=== PATIENT | female | born 1985 | race Caucasian/White ===

== ENCOUNTER 2018-09-03 01:28 | Emergency (ER) | payer MEDICAID ==
[2018-09-03] MEDS ORDERED: Keppra 500 MG/5 ML*** 1,000 MG in D5w 100ML Mini Bag 100 ML 100 ML IV ONE (01:40)
[2018-09-03] MEDS ORDERED: Sodium Chloride 0.9% 1000 ML 1,000 ML IV SCH (01:45)
--- NOTE | 2018-09-03 01:46 | ERPHSYRPT ---
- History of Present Illness Time Seen by Provider: 09/03/18 01:35 Source: patient Patient Subjective Stated Complaint: PT IS ALERT AND ORIENTED. PT IS AMBULATORY WITH A STEADY GAIT. PT COMES IN TONIGHT AFTER HAVING 4 SEIZURES WHILE AT WORK. PT IS UNAWARE OF HOW LONG SEIZURES LASTED. PT STATES THAT SHE BELIEVES SHE HIT HER HEAD BECAUSE HER HEAD IS HURTING. PT DENIES DOUBLE VISION BUT STATES SHE'S HAVING SENSITIVITY TO LIGHT AND SOUND. PT STATES SHE IS DIZZY. PT PERRLA. PT ABLE TO MOVE EXTREMETIES WITHOUT DIFFICULTY. PT STATES SHE IS VERY SLEEPY. PT SKIN PWD. NO OBVIOUS INJURIES OR BLEEDING NOTED TO HEAD OR REST OF BODY. Triage Nursing Assessment: SEE ABOVE Physician History: PATIENT WITH A HISTORY OF SEIZURE DISORDER, OUT OF HER SEIZURE MEDICATION FOR 5- 6 MONTHS. HAD SEIZURES EPISODES TONIGNT, HAS ASSOCIATED HEADACHE. DENIES FEVER OR NECK INJURY. Timing/Duration: today Severity: mild Character of Deficits: none Baseline/Normal Cognition: alert oriented x 3 Current Cognition: alert oriented x 3 Baseline Gait: walks w/o assistance Associated Symptoms: seizures Allergies/Adverse Reactions: latex Allergy (Verified 09/03/18 01:43) Home Medications: Aripiprazole [Abilify] 5 mg PO HS 09/03/18 [History] Fluoxetine HCl 20 mg [Prozac 20 MG] 20 mg PO DAILY 09/03/18 [History] Hx Tetanus, Diphtheria Vaccination/Date Given: Yes Immunizations Up to Date: Yes - Review of Systems Constitutional: No Fever, No Chills Eyes: No Symptoms Ears, Nose, & Throat: No Symptoms Respiratory: No Symptoms, No Cough, No Dyspnea Cardiac: No Symptoms, No Chest Pain, No Edema, No Syncope Abdominal/Gastrointestinal: No Symptoms, No Abdominal Pain, No Nausea, No Vomiting, No Diarrhea Genitourinary Symptoms: No Dysuria Musculoskeletal: No Symptoms, No Back Pain, No Neck Pain Skin: No Symptoms, No Rash Neurological: No Dizziness, No Focal Weakness, No Sensory Changes Psychological: No Symptoms Endocrine: No Symptoms All Other Systems: Reviewed and Negative - Past Medical History Pertinent Past Medical History: Yes Neurological History: Seizures ENT History: No Pertinent History Cardiac History: No Pertinent History Respiratory History: Asthma Endocrine Medical History: No Pertinent History Musculoskeletal History: No Pertinent History GI Medical History: GERD History: No Pertinent History Psycho-Social History: No Pertinent History Female Reproductive Disorders: No Pertinent History - Past Surgical History Past Surgical History: Yes Neuro Surgical History: No Pertinent History Cardiac: No Pertinent History Respiratory: No Pertinent History Gastrointestinal: No Pertinent History Genitourinary: No Pertinent History Musculoskeletal: No Pertinent History Female Surgical History: Dilation & Curettage, Section - Social History Smoking Status: Current every day smoker How long have you smoked: 2 YEARS Drug Use: none - Female History Hx Now: No - Nursing Vital Signs Nursing Vital Signs: Initial Vital Signs Temperature 99.0 F 09/03/18 01:35 Pulse Rate 57 L 09/03/18 01:35 Respiratory Rate 18 09/03/18 01:35 Blood Pressure 124/53 09/03/18 01:35 O2 Sat by Pulse Oximetry 100 09/03/18 01:35 Pain Scale Pain Intensity 8 - [place] Coma Scale Best Eye Response ([place]): (4) open spontaneously Best Verbal Response ([place]): (5) oriented Best Motor Response ([place]): (6) obeys commands [place] Total: 15 - Physical Exam General Appearance: no apparent distress, alert Eye Exam: bilateral eye: normal inspection, PERRL, EOMI Ears, Nose, Throat Exam: normal ENT inspection Neck Exam: normal inspection Respiratory: normal breath sounds Cardiovascular: regular rate/rhythm, normal heart sounds Gastrointestinal: soft, normal bowel sounds Back Exam: normal inspection Extremity Exam: normal inspection Peripheral Pulses: carotid (R): 2+, carotid (L): 2+, femoral (R): 2+, femoral (L ): 2+, dorsalis-pedis (R): 2+, dorsalis-pedis (L): 2+ Mental Status: alert, 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 Coordination/Gait: normal finger to nose DTR: bicep (R): 2+, bicep (L): 2+, tricep (R): 2+, tricep (L): 2+, knee (R): 2+ , knee (L): 2+, ankle (R): 2+, ankle (L): 2+ Skin Exam: normal color, warm, dry SpO2 Interpretation: normal SpO2: 100 O2 Delivery: Room Air - Course EKG Interpreted by Me: RATE, Sinus Rhythm, NORMAL AXIS Ordered Tests: Active Orders 24 hr Category Date Time Status [facility] Stat Lab 09/03/18 02:16 Completed CBC W DIFF Stat Lab 09/03/18 02:16 Completed MAGNESIUM Stat Lab 09/03/18 02:17 Completed Medication Summary Generic Name Dose Route Start Last Admin Trade Name [place] PRN Reason Stop Dose Admin Sodium Chloride 1,000 mls @ 100 mls/hr 09/03/18 01:45 09/03/18 01:57 Sodium Chloride 0.9% 1000 Ml IV 10/03/18 01:44 100 mls/hr .Q10H ROZ Administration Discontinued Medications Generic Name Dose Route Start Last Admin Trade Name [place] PRN Reason Stop Dose Admin Levetiracetam 1,000 mg/ 110 mls @ 400 mls/hr 09/03/18 01:40 09/03/18 01:56 Dextrose IV 09/03/18 01:56 133 mls/hr STAT ONE Administration Dextrose Confirm 09/03/18 01:48 D5w 100ml Mini Bag 100 Ml Administered 09/03/18 01:49 Dose 100 mls @ ud IV .STK-MED ONE Levetiracetam Confirm 09/03/18 01:48 Keppra 500 Mg/5 Ml Administered 09/03/18 01:49 Dose 1,000 mg .ROUTE .STK-MED ONE Lab/Rad Data: Laboratory Result Diagrams 09/03/18 02:16 09/03/18 02:16 Laboratory Results 09/03/18 09/03/18 09/03/18 Range/Units 02:17 02:16 02:16 WBC 8.5 (4.0-10.5) K/mm3 RBC 4.02 L (4.1-5.4) M/mm3 Hgb 12.0 (12.0-16.0) gm/dl Hct 36.1 (35-47) % MCV 89.8 (78-100) fl MCH 29.8 (26-32) pg MCHC 33.2 (32-36) g/dl RDW 15.0 H (11.5-14.0) % Plt Count 218 (150-450) K/mm3 MPV 11.1 H (6-9.5) fl Gran % 59.9 (36.0-66.0) % Eos # (Auto) 0.09 (0-0.5) Absolute Lymphs (auto) 2.74 (1.0-4.6) Absolute Monos (auto) 0.56 (0.0-1.3) Lymphocytes % 32.2 (24.0-44.0) % Monocytes % 6.6 (0.0-12.0) % Eosinophils % 1.1 (0.00-5.0) % Basophils % 0.2 (0.0-0.4) % Absolute Granulocytes 5.10 (1.4-6.9) Basophils # 0.02 (0-0.4) Sodium 140 (137-145) mmol/L Potassium 3.9 (3.5-5.1) mmol/L Chloride 107 (98-107) mmol/L Carbon Dioxide 23 (22-30) mmol/L Anion Gap 14.9 (5-15) MEQ/L BUN 15 (7-17) mg/dL Creatinine 0.90 (0.52-1.04) mg/dL Estimated GFR > 60.0 ML/MIN Glucose 91 (74-106) mg/dL Calcium 9.6 (8.4-10.2) mg/dL Magnesium 2.2 (1.6-2.3) mg/dL - Progress Progress Note: 09/03/18 04:09 KEPPRA 1000MG IVPB Counseled pt/family regarding: lab results, diagnosis, need for follow-up - Departure Departure Disposition: Home Clinical Impression: SEIZURE DISORDER Condition: Stable Critical Care Time: No Referrals: DOCTOR,NO FAMILY [Primary Care Provider] - Additional Instructions: BEGIN DILANTIN 100MG, 2 TABLETS TWICE DAILY FOR 1 MONTH. OBTAIN A PRIMARY CARE PROVIDER FOR FOLLOWUP. Prescriptions: Phenytoin Sod Extended 100 mg* [Dilantin 100 MG] 200 mg PO BID #120 capsule
[2018-09-03] MEDS ORDERED: Keppra 500 MG/5 ML ONE (01:48)
[2018-09-03] MEDS ORDERED: Sodium Chloride 0.9% 1000 ML 1,000 ML ONE (01:48)
[2018-09-03] MEDS ORDERED: D5w 100ML Mini Bag 100 ML 100 ML IV ONE (01:48)
[2018-09-03 02:20] LABS: BASOPHIL % 0.2 % (0.0-0.4); Basophil (Absolute #) 0.02 (0-0.4); Eosinophil % 1.1 % (0.00-5.0); Eosinophil (Absolute #) 0.09 (0-0.5); Granulocytes % 59.9 % (36.0-66.0); Hematocrit 36.1 % (35-47); Lymphocyte (Absolute #) 2.74 (1.0-4.6); Lymphocytes % 32.2 % (24.0-44.0); Mean Cell Volume 89.8 fl (78-100); Mean Corpuscular Hgb Concent. 33.2 g/dl (32-36); Mean Platelet Volume 11.1 fl (6-9.5); Monocyte (Absolute #) 0.56 (0.0-1.3); Monocytes % 6.6 % (0.0-12.0); Platelet Count 218 K/mm3 (150-450); Red Blood Count 4.02 M/mm3 (4.1-5.4); White Blood Count 8.5 K/mm3 (4.0-10.5)
[2018-09-03 02:30] VITALS: BP 108/62; PULSE 48
[2018-09-03 02:30] LABS: ANION GAP 14.9 MEQ/L (5-15); BLOOD UREA NITROGEN 15 mg/dL (7-17); CHLORIDE 107 mmol/L (98-107); Calcium 9.6 mg/dL (8.4-10.2); Carbon Dioxide 23 mmol/L (22-30); Glucose 91 mg/dL (74-106); Potassium 3.9 mmol/L (3.5-5.1); SODIUM 140 mmol/L (137-145)
[2018-09-03 02:46] LABS: Mean Corpuscular Hemoglobin 29.8 pg (26-32)
[2018-09-03 02:59] VITALS: O2SAT 100
== END 2018-09-03 04:27 | disposition home or self-care (01) ==
LOC: ED 01:28
DX: G40.909 Epilepsy, unspecified, not intractable, without status epilepticus (principal)
CPT/HCPCS: 36415; 80048; 83735; 85025; 96360; 96361; 96365; 96374; 99284; J1953

== ENCOUNTER 2018-09-04 18:23 | Observation (INO) | payer MEDICAID ==
--- NOTE | 2018-09-04 18:57 | ERPHSYRPT ---
- History of Present Illness Source: patient Exam Limitations: no limitations Patient Subjective Stated Complaint: "seizure" today.. was seen here on wednesday for the same. EMS states she had an epidoe where she was bouncing back in her chair. was able to redirect and was able to answer all questions. no tonic / clonic and no incontinence. states has hx of seizures. just moved here from [facility] Nursing Assessment: alert and oriented. arrived with IV to left hand per EMS episode of throwing back of head and eye fluttering.. flapping of right arm. able to tall her to take a deep breath and activity stopped. again able to answer all questions.. no incontinece of confusion. neuro intact. Timing/Duration: today Character of Deficits: none Deficits: no difficulties Baseline/Normal Cognition: alert oriented x 3 Current Cognition: alert oriented x 3 Associated Symptoms: denies symptoms Hx Tetanus, Diphtheria Vaccination/Date Given: Yes Immunizations Up to Date: (unknown) <JORGE GODINEZ - Last Filed: 09/04/18 19:06> <AUSTIN TRONCOSO - Last Filed: 09/05/18 02:03> - History of Present Illness Time Seen by Provider: 09/04/18 18:55 Physician History: "seizure" today.. was seen here on wednesday for the same. EMS states she had an epidoe where she was bouncing back in her chair. was able to redirect and was able to answer all questions. no tonic /clonic and no incontinence. states has hx of seizures. episode of throwing back of head and eye fluttering.. flapping of right arm. able to tall her to take a deep breath and activity stopped. again able to answer all questions.. no incontinece of confusion. (JORGE GODINEZ) Allergies/Adverse Reactions: latex Allergy (Verified 09/03/18 01:43) Home Medications: Aripiprazole [Abilify] 5 mg PO HS 09/03/18 [History] Fluoxetine HCl 20 mg [Prozac 20 MG] 20 mg PO DAILY 09/03/18 [History] - Review of Systems Constitutional: No Fever, No Chills Eyes: No Symptoms Ears, Nose, & Throat: No Symptoms Respiratory: No Cough, No Dyspnea Cardiac: No Chest Pain, No Edema, No Syncope Abdominal/Gastrointestinal: No Abdominal Pain, No Nausea, No Vomiting, No Diarrhea Genitourinary Symptoms: No Dysuria Musculoskeletal: No Back Pain, No Neck Pain Skin: No Rash Neurological: Seizure, No Dizziness, No Focal Weakness, No Sensory Changes Psychological: No Symptoms Endocrine: No Symptoms All Other Systems: Reviewed and Negative <GRETCHEN,JORGE - Last Filed: 09/04/18 19:06> - Past Medical History Pertinent Past Medical History: Yes Neurological History: Seizures ENT History: No Pertinent History Cardiac History: No Pertinent History Respiratory History: Asthma Endocrine Medical History: No Pertinent History Musculoskeletal History: No Pertinent History GI Medical History: GERD History: No Pertinent History Psycho-Social History: No Pertinent History Female Reproductive Disorders: No Pertinent History - Past Surgical History Past Surgical History: Yes Neuro Surgical History: No Pertinent History Cardiac: No Pertinent History Respiratory: No Pertinent History Gastrointestinal: No Pertinent History Genitourinary: No Pertinent History Musculoskeletal: No Pertinent History Female Surgical History: Dilation & Curettage, Section - Social History Smoking Status: Former smoker How long have you smoked: 2 YEARS Exposure to second hand smoke: No Drug Use: none Patient Lives Alone: No - Female History Hx Last Menstrual Period: 1 month Hx Now: No <GRETCHEN,JORGE - Last Filed: 09/04/18 19:06> - [place] Coma Scale Best Eye Response ([place]): (4) open spontaneously Best Verbal Response ([place]): (5) oriented Best Motor Response ([place]): (6) obeys commands [place] Total: 15 - Physical Exam General Appearance: no apparent distress, alert Eye Exam: bilateral eye: PERRL, EOMI Ears, Nose, Throat Exam: normal ENT inspection, moist mucous membranes Neck Exam: normal inspection, non-tender, supple Respiratory: normal breath sounds, lungs clear, airway intact, No respiratory distress Cardiovascular: regular rate/rhythm, No edema Gastrointestinal: soft, No tenderness, No distention Back Exam: normal inspection Extremity Exam: normal inspection, No pedal edema Mental Status: alert, 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 Coordination/Gait: normal finger to nose, normal gait Skin Exam: normal color, warm, dry, No rash SpO2: 100 <GRETCHEN,JORGE - Last Filed: 09/04/18 19:06> - Nursing Vital Signs Nursing Vital Signs: Initial Vital Signs Temperature 98.1 F 09/04/18 18:34 Pulse Rate 60 09/04/18 18:34 Respiratory Rate 18 09/04/18 18:34 Blood Pressure 110/57 09/04/18 18:34 O2 Sat by Pulse Oximetry 100 09/04/18 18:34 Pain Scale Pain Intensity 0 - Course Nursing assessment & vital signs reviewed: Yes <GRETCHENCAROLJORGE - Last Filed: 09/04/18 19:06> - Course Nursing assessment & vital signs reviewed: Yes EKG Interpreted by Me: RATE (52 bpm), Sinus [place], NORMAL AXIS, Other (EKG: Sinus bradycardia, tachycardia 2 beats per minute, no acute ST or T wave changes noted) <AUSTIN TRONCOSO - Last Filed: 09/05/18 02:03> Ordered Tests: Active Orders 24 hr Category Date Time Status Bedrest with BRP/BSC ROUTINE Activity 09/04/18 21:55 Active Call Admit Doctor for Orders ON ADMISSION Care 09/04/18 21:55 Active Code Status Order ROUTINE Care 09/04/18 21:55 Active EKG-ER Only STAT Care 09/04/18 20:41 Completed IV Care Q6H Care 09/04/18 21:55 Active Neuro Checks Q4H Care 09/04/18 21:[address] in Observation ROUTINE Care 09/04/18 21:55 Active Telemetry q6h Care 09/04/18 21:55 Active Weight,Daily 0600 Care 09/04/18 21:55 Active Clear Liquid Diet 09/04/18 Breakfast Active CBC W DIFF AM.LAB Lab 09/05/18 04:00 Ordered CBC W DIFF Stat Lab 09/04/18 19:15 Completed CMP AM.LAB Lab 09/05/18 04:00 Ordered CMP Stat Lab 09/04/18 19:15 Completed HCG QUALITATIVE,SERUM Stat Lab 09/04/18 19:15 Completed UA W/RFX UR CULTURE Stat Lab 09/04/18 19:39 Completed Pulse Oximetry CONTINUOUS RT 09/04/18 21:55 Active Medication Summary Generic Name Dose Route Start Last Admin Trade Name Freq PRN Reason Stop Dose Admin Albuterol Sulfate 2 puff 09/04/18 23:01 Proventil Common Canister IH 10/04/18 23:00 Q4HPRN PRN SHORTNESS OF BREATH/WHEEZING Aripiprazole 5 mg 09/05/18 22:00 Abilify 10 Mg PO 10/05/18 21:59 HS ROZ Sodium Chloride 1,000 mls @ 100 mls/hr 09/04/18 21:55 09/05/18 00:14 Sodium Chloride 0.9% 1000 Ml IV 10/04/18 21:54 100 mls/hr .Q10H ROZ Administration Phenytoin Sodium 200 mg 09/05/18 00:05 09/05/18 00:14 Dilantin 100 Mg PO 10/05/18 00:04 200 mg BID ROZ Administration Discontinued Medications Generic Name Dose Route Start Last Admin Trade Name Freq PRN Reason Stop Dose Admin Aripiprazole 5 mg 09/05/18 10:00 Abilify 10 Mg PO 10/05/18 09:59 DAILY ROZ Aripiprazole 5 mg 09/05/18 00:08 09/05/18 00:16 Abilify 10 Mg PO 10/05/18 00:07 5 mg DAILY ROZ Administration Aripiprazole Confirm 09/05/18 00:12 Abilify 10 Mg Administered 09/05/18 00:13 Dose 10 mg .ROUTE .STK-MED ONE Fosphenytoin Sodium Confirm 09/04/18 20:44 Cerebyx 50 Mg/Ml Administered 09/04/18 20:45 Dose 500 mg .ROUTE .STK-MED ONE Fosphenytoin Sodium 500 mg/ 110 mls @ 300 mls/hr 09/04/18 20:41 09/04/18 20: 52 Sodium Chloride IV 09/04/18 21:02 300 mls/hr STAT ONE Administration Sodium Chloride Confirm 09/04/18 20:44 Sodium Chloride 0.9% 100 Ml Ivpb Administered 09/04/18 20:45 Dose 100 mls @ ud IV .STK-MED ONE Lab/Rad Data: Laboratory Result Diagrams 09/04/18 19:15 09/04/18 19:15 Laboratory Results 09/04/18 09/04/18 09/04/18 Range/Units 19:39 19:15 19:15 WBC (4.0-10.5) K/mm3 RBC (4.1-5.4) M/mm3 Hgb (12.0-16.0) gm/dl Hct (35-47) % MCV (78-100) fl MCH (26-32) pg MCHC (32-36) g/dl RDW (11.5-14.0) % Plt Count (150-450) K/mm3 MPV (6-9.5) fl Gran % (36.0-66.0) % Eos # (Auto) (0-0.5) Absolute Lymphs (auto) (1.0-4.6) Absolute Monos (auto) (0.0-1.3) Lymphocytes % (24.0-44.0) % Monocytes % (0.0-12.0) % Eosinophils % (0.00-5.0) % Basophils % (0.0-0.4) % Absolute Granulocytes (1.4-6.9) Basophils # (0-0.4) Sodium (137-145) mmol/L Potassium (3.5-5.1) mmol/L Chloride (98-107) mmol/L Carbon Dioxide (22-30) mmol/L Anion Gap (5-15) MEQ/L BUN (7-17) mg/dL Creatinine (0.52-1.04) mg/dL Estimated GFR ML/MIN Glucose (74-106) mg/dL Calcium (8.4-10.2) mg/dL Total Bilirubin (0.2-1.3) mg/dL AST (14-36) U/L ALT (0-35) U/L Alkaline Phosphatase (38-126) U/L Serum Total Protein (6.3-8.2) g/dL Albumin (3.5-5.0) g/dL Serum , Qual NEGATIVE (Negative) Urine Color YELLOW (YELLOW) Urine Appearance SLIGHTLY CLOUDY (CLEAR) Urine pH 7.0 (5-6) Ur Specific [place] 1.008 (1.005-1.025) Urine Protein NEGATIVE (Negative) Urine Ketones NEGATIVE (NEGATIVE) Urine Blood NEGATIVE (0-5) Horacio/ul Urine Nitrite NEGATIVE (NEGATIVE) Urine Bilirubin NEGATIVE (NEGATIVE) Urine Urobilinogen NEGATIVE (0-1) mg/dL Ur Leukocyte Esterase NEGATIVE (NEGATIVE) Urine WBC (Auto) 0-2 (0-5) /HPF Urine RBC (Auto) NONE SEEN (0-2) /HPF U Epithel Cells (Auto) FEW (FEW) /HPF Urine Bacteria (Auto) RARE (NEGATIVE) /HPF Urine Mucus (Auto) SLIGHT (NEGATIVE) /HPF Urine Culture Reflexed NO (NO) Urine Glucose NEGATIVE (NEGATIVE) mg/dL Phenytoin 4.0 L (10-20) ug/mL 09/04/18 09/04/18 Range/Units 19:15 19:15 WBC 7.2 (4.0-10.5) K/mm3 RBC 3.92 L (4.1-5.4) M/mm3 Hgb 11.8 L (12.0-16.0) gm/dl Hct 35.4 (35-47) % MCV 90.3 (78-100) fl MCH 30.1 (26-32) pg MCHC 33.3 (32-36) g/dl RDW 15.1 H (11.5-14.0) % Plt Count 197 (150-450) K/mm3 MPV 11.0 H (6-9.5) fl Gran % 57.5 (36.0-66.0) % Eos # (Auto) 0.10 (0-0.5) Absolute Lymphs (auto) 2.30 (1.0-4.6) Absolute Monos (auto) 0.64 (0.0-1.3) Lymphocytes % 31.9 (24.0-44.0) % Monocytes % 8.9 (0.0-12.0) % Eosinophils % 1.4 (0.00-5.0) % Basophils % 0.3 (0.0-0.4) % Absolute Granulocytes 4.14 (1.4-6.9) Basophils # 0.02 (0-0.4) Sodium 140 (137-145) mmol/L Potassium 4.5 (3.5-5.1) mmol/L Chloride 110 H (98-107) mmol/L Carbon Dioxide 23 (22-30) mmol/L Anion Gap 11.6 (5-15) MEQ/L BUN 12 (7-17) mg/dL Creatinine 1.39 H (0.52-1.04) mg/dL Estimated GFR 46.7 ML/MIN Glucose 79 (74-106) mg/dL Calcium 8.8 (8.4-10.2) mg/dL Total Bilirubin 0.10 L (0.2-1.3) mg/dL AST 16 (14-36) U/L ALT 14 (0-35) U/L Alkaline Phosphatase 47 (38-126) U/L Serum Total Protein 6.8 (6.3-8.2) g/dL Albumin 3.7 (3.5-5.0) g/dL Serum , Qual (Negative) Urine Color (YELLOW) Urine Appearance (CLEAR) Urine pH (5-6) Ur Specific [place] (1.005-1.025) Urine Protein (Negative) Urine Ketones (NEGATIVE) Urine Blood (0-5) Horacio/ul Urine Nitrite (NEGATIVE) Urine Bilirubin (NEGATIVE) Urine Urobilinogen (0-1) mg/dL Ur Leukocyte Esterase (NEGATIVE) Urine WBC (Auto) (0-5) /HPF Urine RBC (Auto) (0-2) /HPF U Epithel Cells (Auto) (FEW) /HPF Urine Bacteria (Auto) (NEGATIVE) /HPF Urine Mucus (Auto) (NEGATIVE) /HPF Urine Culture Reflexed (NO) Urine Glucose (NEGATIVE) mg/dL Phenytoin (10-20) ug/mL <JORGE GODINEZ - Last Filed: 09/04/18 19:06> <AUSTIN TRONCOSO - Last Filed: 09/05/18 02:03> - Progress Progress Note: 09/04/18 20:42 33-year-old white female [place] who has a history of seizures apparently seen on Wednesday secondary to seizure-like activity. Was at that time given Keppra 500 mg and placed on Dilantin 100 mg orally twice a day patient apparently having episodes where she was bouncing back in her chair at home multiple times she arrives in the emergency room she was initially seen by Dr. Godinez she apparently was bouncing back in her chair and he apparently laid his hand on her told her to take a deep breath in her activity stop she had no postictal period and no urinary incontinence.. Patient currently is alert oriented x3 patient with a Dilantin level of 4 urinalysis is unremarkable chemistry sodium 140 potassium 4.5 chloride 110 BUN 12 creatinine 1.39 glucose is 79 CBC White blood cell 7.2 hemoglobin 20 hematocrit 35.4 On physical examination patient's vitals are stable she is alert oriented x3 head is atraumatic normocephalic. Eyes PERRLA EOMI fundi are unremarkable. Ears TMs are intact bilaterally. Nose is clear throat is clear neck is supple. Lungs are clear heart regular rate rhythm without murmur abdomen soft nontender nondistended positive bowel sounds. Extremities full range with pulse equal symmetrical two over four. Neuro cranial nerves II through XII are intact DTRs symmetrical equal two over four [place] Coma Scale is 15. Impression seizure-like activity. Seizure versus nonepileptic seizure. Plan head consider giving the patient cerebrex 500 mg IV and consider releasing patient however patient's family states that they're worried about her having to presentation secondary seizure therefore I discussed the patient's case with Dr. Whitehead. Will go ahead and give patient cerebrexs I will obtain an EKG as well. Will place patient on observation seizure precautions obtain repeat Dilantin level in the morning with CBC CMP patient states that she is considering selecting Dr. Godinez as the patient will go ahead and give patient to observation with carotid as attending Dr. Whitehead will discuss this with Dr. Godinez in the morning. . 09/05/18 02:02 (AUSTIN TRONCOSO) <JORGE GODINEZ - Last Filed: 09/04/18 19:06> - Departure Departure Disposition: Observation Critical Care Time: No <AUSTIN TRONCOSO - Last Filed: 09/05/18 02:03> - Departure Clinical Impression: Seizure-like activity, nonepileptic seizure versus seizure Condition: Fair
[2018-09-04 19:19] LABS: BASOPHIL % 0.3 % (0.0-0.4); Basophil (Absolute #) 0.02 (0-0.4); Eosinophil % 1.4 % (0.00-5.0); Granulocyte Absolute (ANC) 4.14 (1.4-6.9); Granulocytes % 57.5 % (36.0-66.0); Hematocrit 35.4 % (35-47); Hemoglobin 11.8 gm/dl (12.0-16.0); Lymphocytes % 31.9 % (24.0-44.0); Mean Cell Volume 90.3 fl (78-100); Mean Corpuscular Hemoglobin 30.1 pg (26-32); Mean Corpuscular Hgb Concent. 33.3 g/dl (32-36); Monocyte (Absolute #) 0.64 (0.0-1.3); Monocytes % 8.9 % (0.0-12.0); Platelet Count 197 K/mm3 (150-450); Red Blood Count 3.92 M/mm3 (4.1-5.4); Red Cell Distribution Width 15.1 % (11.5-14.0); White Blood Count 7.2 K/mm3 (4.0-10.5)
[2018-09-04 19:42] LABS: ALBUMIN 3.7 g/dL (3.5-5.0); ANION GAP 11.6 MEQ/L (5-15); BILIRUBIN,TOTAL 0.1 mg/dL (0.2-1.3); Calcium 8.8 mg/dL (8.4-10.2); Creatinine 1 1.39 mg/dL (0.52-1.04); Potassium 4.5 mmol/L (3.5-5.1); Total Protein 6.8 g/dL (6.3-8.2)
[2018-09-04 19:47] LABS: Appearance SLIGHTLY CLOUDY (CLEAR); Bacteria RARE /HPF (NEGATIVE); Bilirubin NEGATIVE (NEGATIVE); Blood NEGATIVE Ery/ul (0-5); Epithelial Cells FEW /HPF (FEW); Glucose NEGATIVE (NEGATIVE); Ketones NEGATIVE (NEGATIVE); Leukocyte Esterase NEGATIVE (NEGATIVE); Mucus SLIGHT /HPF (NEGATIVE); Nitrite NEGATIVE (NEGATIVE); Protein,Urine Dip NEGATIVE (Negative); RBC NONE SEEN /HPF (0-2); Specific Gravity 1.008 (1.005-1.025); Urobilinogen NEGATIVE mg/dL (0-1); WBC 0-2 /HPF (0-5)
[2018-09-04] MEDS ORDERED: cereBYX 50 MG/ML*** 500 MG in Sodium Chloride 0.9% 100 ML IVPB 100 ML IV ONE (20:41)
[2018-09-04] MEDS ORDERED: Sodium Chloride 0.9% 100 ML IVPB 100 ML IV ONE (20:44)
[2018-09-04] MEDS ORDERED: cereBYX 50 MG/ML ONE (20:44)
[2018-09-04] MEDS ORDERED: PROVENTIL COMMON CANISTER IH PRN (23:01)
[2018-09-05] MEDS ORDERED: Abilify 10 MG PO SCH ×3 (00:08→22:00)
[2018-09-05] MEDS ORDERED: Abilify 10 MG ONE (00:12)
[2018-09-05] MEDS: Sodium Chloride 0.9% 1000 ML 1,000 ML IV SCH ×2 (00:14→08:02)
[2018-09-05] MEDS: Dilantin 100 MG PO SCH ×2 (00:14→10:27)
[2018-09-05 05:51] LABS: BASOPHIL % 0.3 % (0.0-0.4); Basophil (Absolute #) 0.02 (0-0.4); Eosinophil % 1.6 % (0.00-5.0); Eosinophil (Absolute #) 0.11 (0-0.5); Granulocyte Absolute (ANC) 2.94 (1.4-6.9); Hemoglobin 11.4 gm/dl (12.0-16.0); Lymphocyte (Absolute #) 3.19 (1.0-4.6); Lymphocytes % 47.8 % (24.0-44.0); Mean Cell Volume 90.2 fl (78-100); Mean Corpuscular Hgb Concent. 31.7 g/dl (32-36); Mean Platelet Volume 11.5 fl (6-9.5); Monocyte (Absolute #) 0.42 (0.0-1.3); Monocytes % 6.3 % (0.0-12.0); Platelet Count 189 K/mm3 (150-450); Red Blood Count 3.99 M/mm3 (4.1-5.4); Red Cell Distribution Width 15.2 % (11.5-14.0); White Blood Count 6.7 K/mm3 (4.0-10.5)
[2018-09-05 06:12] LABS: Mean Corpuscular Hemoglobin 28.5 pg (26-32)
[2018-09-05 06:23] LABS: ALBUMIN 3.4 g/dL (3.5-5.0); ALKALINE PHOSPHATASE 44 U/L (38-126); ANION GAP 12.6 MEQ/L (5-15); BLOOD UREA NITROGEN 11 mg/dL (7-17); CHLORIDE 113 mmol/L (98-107); Calcium 8.5 mg/dL (8.4-10.2); Creatinine 1 0.81 mg/dL (0.52-1.04); Glucose 84 mg/dL (74-106); Potassium 4.2 mmol/L (3.5-5.1); SGOT/AST 12 U/L (14-36); SGPT/ALT 14 U/L (0-35); SODIUM 138 mmol/L (137-145); Total Protein 6.5 g/dL (6.3-8.2)
[2018-09-05 06:26] LABS: Carbon Dioxide 16 mmol/L (22-30)
[2018-09-05] MEDS ORDERED: Sodium Chloride 0.9% 1000 ML 1,000 ML IV STA (06:44)
[2018-09-05 08:18] VITALS: BP 100/55
[2018-09-05 09:40] VITALS: PULSE 60; O2SAT 97
[2018-09-05 10:42] LABS: ANION GAP 10.6 MEQ/L (5-15); BLOOD UREA NITROGEN 8 mg/dL (7-17); CHLORIDE 113 mmol/L (98-107); Calcium 8.2 mg/dL (8.4-10.2); Carbon Dioxide 19 mmol/L (22-30); Creatinine 1 0.75 mg/dL (0.52-1.04); Glucose 88 mg/dL (74-106); Potassium 4.2 mmol/L (3.5-5.1); SODIUM 138 mmol/L (137-145)
[2018-09-05] MEDS ORDERED: Prozac 20 MG PO SCH (12:00)
--- NOTE | 2018-09-05 15:56 | PCM.SSS ---
History of Present Illness - Chief Complaint Chief Complaint: seizure like activity for 1 day History of Present Illness: is a 33 year old female. is c/o seizure" today.. was seen here on wednesday for the same. EMS states she had an epidoe where she was bouncing back in her chair. was able to redirect and was able to answer all questions. no tonic /clonic and no incontinence. states has hx of seizures. - Review of Systems Constitutional: No Fever, No Chills Eyes: No Symptoms Ears, Nose, & Throat: No Symptoms Respiratory: No Cough, No Short Of Breath Cardiac: No Chest Pain, No Edema, No Syncope Abdominal/Gastrointestinal: No Abdominal Pain, No Nausea, No Vomiting, No Diarrhea Genitourinary Symptoms: No Dysuria Musculoskeletal: No Back Pain, No Neck Pain Skin: No Rash Neurological: Seizure, No Dizziness, No Focal Weakness, No Sensory Changes Psychological: No Symptoms Endocrine: No Symptoms Hematologic/Lymphatic: No Symptoms Immunological/Allergic: No Symptoms Medications & Allergies Home Medications: Home Medication List Aripiprazole [Abilify] 5 mg PO HS 09/03/18 [History Confirmed 09/05/18] Fluoxetine HCl 20 mg [Prozac 20 MG] 20 mg PO DAILY 09/03/18 [History Confirmed 09/05/18] Phenytoin Sod Extended 100 mg* [Dilantin 100 MG] 200 mg PO BID #120 capsule 09/03/18 [Rx Confirmed 09/05/18] Allergies/Adverse Reactions: Allergies Allergy/AdvReac Type Severity Reaction Status Date / Time latex Allergy Verified 09/03/18 01:43 - Past Medical History Past Medical History: Yes Neurological History: Seizures ENT History: No Pertinent History Cardiac History: No Pertinent History Respiratory History: Asthma Endocrine Medical History: No Pertinent History Musculoskelatal History: No Pertinent History GI Medical History: GERD History: No Pertinent History Pyscho-Social History: No Pertinent History Reproductive Disorders: No Pertinent History - Female History Hx Last Menstrual Period: 1 month Are you now?: No - Past Surgical History Past Surgical History: Yes Neuro Surgical History: No Pertinent History Cardiac History: No Pertinent History Respiratory Surgery: No Pertinent History GI Surgical History: No Pertinent History Genitourinary Surgical Hx: No Pertinent History Musculskeletal Surgical Hx: No Pertinent History Female Surgical History: Dilation & Curettage, Section - Social History Smoking Status: Current every day smoker How long have you smoked: 2 YEARS Exposure to second hand smoke: Yes Alcohol: None Drug Use: none - Physical Exam Vital Signs: Vital Signs - 24 hr Temp Pulse Resp BP Pulse Ox 09/05/18 09:36 60 18 97 09/05/18 08:00 98.5 F 52 L 20 100/55 100 09/05/18 03:17 98.3 F 58 L 18 87/49 100 09/04/18 23:40 98.8 F 70 16 102/51 98 09/04/18 22:48 70 16 98 09/04/18 22:29 98.8 F 54 L 18 102/51 100 09/04/18 20:53 60 14 96/53 99 09/04/18 19:06 100 09/04/18 18:34 98.1 F 60 18 110/57 100 General Appearance: no apparent distress, alert Neurologic Exam: alert, oriented x 3, cooperative, normal mood/affect, nml cerebellar function, nml station & gait, sensation nml, No motor deficits Eye Exam: PERRL/EOMI, eyes nml inspection Ears, Nose, Throat Exam: normal ENT inspection, TMs normal, pharynx normal, moist mucous membranes Neck Exam: normal inspection, non-tender, supple, full range of motion Respiratory Exam: normal breath sounds, lungs clear, No respiratory distress Cardiovascular Exam: regular rate/rhythm, normal heart sounds, normal peripheral pulses Gastrointestinal/Abdomen Exam: soft, normal bowel sounds, No tenderness, No mass Back Exam: normal inspection, normal range of motion, No CVA tenderness, No vertebral tenderness Extremity Exam: normal inspection, normal range of motion, pelvis stable Skin Exam: normal color, warm, dry, No rash Lymphatic Exam: No adenopathy Results - Labs Lab/Micro Results: Lab Results-Last 24 Hours 09/04/18 09/04/18 09/04/18 Range/Units 19:15 19:15 19:15 WBC 7.2 (4.0-10.5) K/mm3 RBC 3.92 L (4.1-5.4) M/mm3 Hgb 11.8 L (12.0-16.0) gm/dl Hct 35.4 (35-47) % MCV 90.3 (78-100) fl MCH 30.1 (26-32) pg MCHC 33.3 (32-36) g/dl RDW 15.1 H (11.5-14.0) % Plt Count 197 (150-450) K/mm3 MPV 11.0 H (6-9.5) fl Gran % 57.5 (36.0-66.0) % Eos # (Auto) 0.10 (0-0.5) Absolute Lymphs (auto) 2.30 (1.0-4.6) Absolute Monos (auto) 0.64 (0.0-1.3) Lymphocytes % 31.9 (24.0-44.0) % Monocytes % 8.9 (0.0-12.0) % Eosinophils % 1.4 (0.00-5.0) % Basophils % 0.3 (0.0-0.4) % Absolute Granulocytes 4.14 (1.4-6.9) Basophils # 0.02 (0-0.4) Sodium 140 (137-145) mmol/L Potassium 4.5 (3.5-5.1) mmol/L Chloride 110 H (98-107) mmol/L Carbon Dioxide 23 (22-30) mmol/L Anion Gap 11.6 (5-15) MEQ/L BUN 12 (7-17) mg/dL Creatinine 1.39 H (0.52-1.04) mg/dL Estimated GFR 46.7 ML/MIN Glucose 79 (74-106) mg/dL Calcium 8.8 (8.4-10.2) mg/dL Total Bilirubin 0.10 L (0.2-1.3) mg/dL AST 16 (14-36) U/L ALT 14 (0-35) U/L Alkaline Phosphatase 47 (38-126) U/L Serum Total Protein 6.8 (6.3-8.2) g/dL Albumin 3.7 (3.5-5.0) g/dL Serum , Qual (Negative) Urine Color (YELLOW) Urine Appearance (CLEAR) Urine pH (5-6) Ur Specific Pitts (1.005-1.025) Urine Protein (Negative) Urine Ketones (NEGATIVE) Urine Blood (0-5) Horacio/ul Urine Nitrite (NEGATIVE) Urine Bilirubin (NEGATIVE) Urine Urobilinogen (0-1) mg/dL Ur Leukocyte Esterase (NEGATIVE) Urine WBC (Auto) (0-5) /HPF Urine RBC (Auto) (0-2) /HPF U Epithel Cells (Auto) (FEW) /HPF Urine Bacteria (Auto) (NEGATIVE) /HPF Urine Mucus (Auto) (NEGATIVE) /HPF Urine Culture Reflexed (NO) Urine Glucose (NEGATIVE) mg/dL Phenytoin 4.0 L (10-20) ug/mL 09/04/18 09/04/18 09/05/18 Range/Units 19:15 19:39 05:10 WBC 6.7 (4.0-10.5) K/mm3 RBC 3.99 L (4.1-5.4) M/mm3 Hgb 11.4 L (12.0-16.0) gm/dl Hct 36.0 (35-47) % MCV 90.2 (78-100) fl MCH 28.5 (26-32) pg MCHC 31.7 L (32-36) g/dl RDW 15.2 H (11.5-14.0) % Plt Count 189 (150-450) K/mm3 MPV 11.5 H (6-9.5) fl Gran % 44.0 (36.0-66.0) % Eos # (Auto) 0.11 (0-0.5) Absolute Lymphs (auto) 3.19 (1.0-4.6) Absolute Monos (auto) 0.42 (0.0-1.3) Lymphocytes % 47.8 H (24.0-44.0) % Monocytes % 6.3 (0.0-12.0) % Eosinophils % 1.6 (0.00-5.0) % Basophils % 0.3 (0.0-0.4) % Absolute Granulocytes 2.94 (1.4-6.9) Basophils # 0.02 (0-0.4) Sodium (137-145) mmol/L Potassium (3.5-5.1) mmol/L Chloride (98-107) mmol/L Carbon Dioxide (22-30) mmol/L Anion Gap (5-15) MEQ/L BUN (7-17) mg/dL Creatinine (0.52-1.04) mg/dL Estimated GFR ML/MIN Glucose (74-106) mg/dL Calcium (8.4-10.2) mg/dL Total Bilirubin (0.2-1.3) mg/dL AST (14-36) U/L ALT (0-35) U/L Alkaline Phosphatase (38-126) U/L Serum Total Protein (6.3-8.2) g/dL Albumin (3.5-5.0) g/dL Serum , Qual NEGATIVE (Negative) Urine Color YELLOW (YELLOW) Urine Appearance SLIGHTLY CLOUDY (CLEAR) Urine pH 7.0 (5-6) Ur Specific Pitts 1.008 (1.005-1.025) Urine Protein NEGATIVE (Negative) Urine Ketones NEGATIVE (NEGATIVE) Urine Blood NEGATIVE (0-5) Horacio/ul Urine Nitrite NEGATIVE (NEGATIVE) Urine Bilirubin NEGATIVE (NEGATIVE) Urine Urobilinogen NEGATIVE (0-1) mg/dL Ur Leukocyte Esterase NEGATIVE (NEGATIVE) Urine WBC (Auto) 0-2 (0-5) /HPF Urine RBC (Auto) NONE SEEN (0-2) /HPF U Epithel Cells (Auto) FEW (FEW) /HPF Urine Bacteria (Auto) RARE (NEGATIVE) /HPF Urine Mucus (Auto) SLIGHT (NEGATIVE) /HPF Urine Culture Reflexed NO (NO) Urine Glucose NEGATIVE (NEGATIVE) mg/dL Phenytoin (10-20) ug/mL 09/05/18 09/05/18 09/05/18 Range/Units 05:10 05:10 10:00 WBC (4.0-10.5) K/mm3 RBC (4.1-5.4) M/mm3 Hgb (12.0-16.0) gm/dl Hct (35-47) % MCV (78-100) fl MCH (26-32) pg MCHC (32-36) g/dl RDW (11.5-14.0) % Plt Count (150-450) K/mm3 MPV (6-9.5) fl Gran % (36.0-66.0) % Eos # (Auto) (0-0.5) Absolute Lymphs (auto) (1.0-4.6) Absolute Monos (auto) (0.0-1.3) Lymphocytes % (24.0-44.0) % Monocytes % (0.0-12.0) % Eosinophils % (0.00-5.0) % Basophils % (0.0-0.4) % Absolute Granulocytes (1.4-6.9) Basophils # (0-0.4) Sodium 138 138 (137-145) mmol/L Potassium 4.2 4.2 (3.5-5.1) mmol/L Chloride 113 H 113 H (98-107) mmol/L Carbon Dioxide 16 L* 19 L (22-30) mmol/L Anion Gap 12.6 10.6 (5-15) MEQ/L BUN 11 8 (7-17) mg/dL Creatinine 0.81 0.75 (0.52-1.04) mg/dL Estimated GFR > 60.0 > 60.0 ML/MIN Glucose 84 88 (74-106) mg/dL Calcium 8.5 8.2 L (8.4-10.2) mg/dL Total Bilirubin 0.20 (0.2-1.3) mg/dL AST 12 L (14-36) U/L ALT 14 (0-35) U/L Alkaline Phosphatase 44 (38-126) U/L Serum Total Protein 6.5 (6.3-8.2) g/dL Albumin 3.4 L (3.5-5.0) g/dL Serum , Qual (Negative) Urine Color (YELLOW) Urine Appearance (CLEAR) Urine pH (5-6) Ur Specific Pitts (1.005-1.025) Urine Protein (Negative) Urine Ketones (NEGATIVE) Urine Blood (0-5) Horacio/ul Urine Nitrite (NEGATIVE) Urine Bilirubin (NEGATIVE) Urine Urobilinogen (0-1) mg/dL Ur Leukocyte Esterase (NEGATIVE) Urine WBC (Auto) (0-5) /HPF Urine RBC (Auto) (0-2) /HPF U Epithel Cells (Auto) (FEW) /HPF Urine Bacteria (Auto) (NEGATIVE) /HPF Urine Mucus (Auto) (NEGATIVE) /HPF Urine Culture Reflexed (NO) Urine Glucose (NEGATIVE) mg/dL Phenytoin 9.0 L (10-20) ug/mL - Other Procedures and Tests Respiratory Therapy 09/04/18 23:02 Peak Expiratory Flow Rate ONCE Respiratory Therapy Assessment DAILY Assessment/Plan (1) Seizure-like activity Status: Acute Assessment & Plan: Last Vital Signs Temp 98.5 F 09/05/18 08:00 Pulse 60 09/05/18 09:36 Resp 18 06/03/19 09:36 BP 100/55 09/05/18 08:00 Pulse Ox 97 09/05/18 09:36 Allergies latex Allergy (Verified 09/03/18 01:43) Intake & Output 09/05/18 09/06/18 11:59 11:59 Intake Total 818 360 Output Total 1400 300 Balance -582 60 Weight 89.5 kg Orders 09/04/18 19:15 PROLACTIN Stat 09/05/18 Discharge Routine Discharge/Telephone Order Routine Lab Tests 09/04/18 09/04/18 09/04/18 19:15 19:15 19:15 WBC 7.2 RBC 3.92 L Hgb 11.8 L Hct 35.4 MCV 90.3 MCH 30.1 MCHC 33.3 RDW 15.1 H Plt Count 197 MPV 11.0 H Gran % 57.5 Eos # (Auto) 0.10 Absolute Lymphs (auto) 2.30 Absolute Monos (auto) 0.64 Lymphocytes % 31.9 Monocytes % 8.9 Eosinophils % 1.4 Basophils % 0.3 Absolute Granulocytes 4.14 Basophils # 0.02 Sodium 140 Potassium 4.5 Chloride 110 H Carbon Dioxide 23 Anion Gap 11.6 BUN 12 Creatinine 1.39 H Estimated GFR 46.7 Glucose 79 Calcium 8.8 Total Bilirubin 0.10 L AST 16 ALT 14 Alkaline Phosphatase 47 Serum Total Protein 6.8 Albumin 3.7 Serum , Qual Urine Color Urine Appearance Urine pH Ur Specific Pitts Urine Protein Urine Ketones Urine Blood Urine Nitrite Urine Bilirubin Urine Urobilinogen Ur Leukocyte Esterase Urine WBC (Auto) Urine RBC (Auto) U Epithel Cells (Auto) Urine Bacteria (Auto) Urine Mucus (Auto) Urine Culture Reflexed Urine Glucose Phenytoin 4.0 L 09/04/18 09/04/18 09/05/18 19:15 19:39 05:10 WBC 6.7 RBC 3.99 L Hgb 11.4 L Hct 36.0 MCV 90.2 MCH 28.5 MCHC 31.7 L RDW 15.2 H Plt Count 189 MPV 11.5 H Gran % 44.0 Eos # (Auto) 0.11 Absolute Lymphs (auto) 3.19 Absolute Monos (auto) 0.42 Lymphocytes % 47.8 H Monocytes % 6.3 Eosinophils % 1.6 Basophils % 0.3 Absolute Granulocytes 2.94 Basophils # 0.02 Sodium Potassium Chloride Carbon Dioxide Anion Gap BUN Creatinine Estimated GFR Glucose Calcium Total Bilirubin AST ALT Alkaline Phosphatase Serum Total Protein Albumin Serum , Qual NEGATIVE Urine Color YELLOW Urine Appearance SLIGHTLY CLOUDY Urine pH 7.0 Ur Specific Pitts 1.008 Urine Protein NEGATIVE Urine Ketones NEGATIVE Urine Blood NEGATIVE Urine Nitrite NEGATIVE Urine Bilirubin NEGATIVE Urine Urobilinogen NEGATIVE Ur Leukocyte Esterase NEGATIVE Urine WBC (Auto) 0-2 Urine RBC (Auto) NONE SEEN U Epithel Cells (Auto) FEW Urine Bacteria (Auto) RARE Urine Mucus (Auto) SLIGHT Urine Culture Reflexed NO Urine Glucose NEGATIVE Phenytoin 09/05/18 09/05/18 09/05/18 05:10 05:10 10:00 WBC RBC Hgb Hct MCV MCH MCHC RDW Plt Count MPV Gran % Eos # (Auto) Absolute Lymphs (auto) Absolute Monos (auto) Lymphocytes % Monocytes % Eosinophils % Basophils % Absolute Granulocytes Basophils # Sodium 138 138 Potassium 4.2 4.2 Chloride 113 H 113 H Carbon Dioxide 16 L* 19 L Anion Gap 12.6 10.6 BUN 11 8 Creatinine 0.81 0.75 Estimated GFR > 60.0 > 60.0 Glucose 84 88 Calcium 8.5 8.2 L Total Bilirubin 0.20 AST 12 L ALT 14 Alkaline Phosphatase 44 Serum Total Protein 6.5 Albumin 3.4 L Serum , Qual Urine Color Urine Appearance Urine pH Ur Specific Pitts Urine Protein Urine Ketones Urine Blood Urine Nitrite Urine Bilirubin Urine Urobilinogen Ur Leukocyte Esterase Urine WBC (Auto) Urine RBC (Auto) U Epithel Cells (Auto) Urine Bacteria (Auto) Urine Mucus (Auto) Urine Culture Reflexed Urine Glucose Phenytoin 9.0 L Code(s): R56.9 - UNSPECIFIED CONVULSIONS Hospital Summary - Hospital Course Hospital Course: Abnormal Lab Results 09/04/18 09/04/18 09/04/18 Range/Units 19:15 19:15 19:15 RBC 3.92 L (4.1-5.4) M/mm3 Hgb 11.8 L (12.0-16.0) gm/dl MCHC (32-36) g/dl RDW 15.1 H (11.5-14.0) % MPV 11.0 H (6-9.5) fl Lymphocytes % (24.0-44.0) % Chloride 110 H (98-107) mmol/L Carbon Dioxide (22-30) mmol/L Creatinine 1.39 H (0.52-1.04) mg/dL Calcium (8.4-10.2) mg/dL Total Bilirubin 0.10 L (0.2-1.3) mg/dL AST (14-36) U/L Albumin (3.5-5.0) g/dL Phenytoin 4.0 L (10-20) ug/mL 09/05/18 09/05/18 09/05/18 Range/Units 05:10 05:10 05:10 RBC 3.99 L (4.1-5.4) M/mm3 Hgb 11.4 L (12.0-16.0) gm/dl MCHC 31.7 L (32-36) g/dl RDW 15.2 H (11.5-14.0) % MPV 11.5 H (6-9.5) fl Lymphocytes % 47.8 H (24.0-44.0) % Chloride 113 H (98-107) mmol/L Carbon Dioxide 16 L* (22-30) mmol/L Creatinine (0.52-1.04) mg/dL Calcium (8.4-10.2) mg/dL Total Bilirubin (0.2-1.3) mg/dL AST 12 L (14-36) U/L Albumin 3.4 L (3.5-5.0) g/dL Phenytoin 9.0 L (10-20) ug/mL 09/05/18 Range/Units 10:00 RBC (4.1-5.4) M/mm3 Hgb (12.0-16.0) gm/dl MCHC (32-36) g/dl RDW (11.5-14.0) % MPV (6-9.5) fl Lymphocytes % (24.0-44.0) % Chloride 113 H (98-107) mmol/L Carbon Dioxide 19 L (22-30) mmol/L Creatinine (0.52-1.04) mg/dL Calcium 8.2 L (8.4-10.2) mg/dL Total Bilirubin (0.2-1.3) mg/dL AST (14-36) U/L Albumin (3.5-5.0) g/dL Phenytoin (10-20) ug/mL - Vitals & Intake/Output Vital Signs: Vital Signs Temperature 98.5 F 09/05/18 08:00 Pulse Rate 60 09/05/18 09:36 Respiratory Rate 18 09/05/18 09:36 Blood Pressure 100/55 09/05/18 08:00 O2 Sat by Pulse Oximetry 97 09/05/18 09:36 Intake & Output: Intake & Output 09/03/18 09/04/18 09/05/18 09/06/18 11:59 11:59 11:59 11:59 Intake Total 818 360 Output Total 1400 300 Balance -582 60 Weight 89.5 kg - Lab Result Diagrams: 09/05/18 05:10 09/05/18 10:00 Lab Results-Last 24 Hrs: Lab Results-Last 24 Hours 09/04/18 09/04/18 09/04/18 Range/Units 19:15 19:15 19:15 WBC 7.2 (4.0-10.5) K/mm3 RBC 3.92 L (4.1-5.4) M/mm3 Hgb 11.8 L (12.0-16.0) gm/dl Hct 35.4 (35-47) % MCV 90.3 (78-100) fl MCH 30.1 (26-32) pg MCHC 33.3 (32-36) g/dl RDW 15.1 H (11.5-14.0) % Plt Count 197 (150-450) K/mm3 MPV 11.0 H (6-9.5) fl Gran % 57.5 (36.0-66.0) % Eos # (Auto) 0.10 (0-0.5) Absolute Lymphs (auto) 2.30 (1.0-4.6) Absolute Monos (auto) 0.64 (0.0-1.3) Lymphocytes % 31.9 (24.0-44.0) % Monocytes % 8.9 (0.0-12.0) % Eosinophils % 1.4 (0.00-5.0) % Basophils % 0.3 (0.0-0.4) % Absolute Granulocytes 4.14 (1.4-6.9) Basophils # 0.02 (0-0.4) Sodium 140 (137-145) mmol/L Potassium 4.5 (3.5-5.1) mmol/L Chloride 110 H (98-107) mmol/L Carbon Dioxide 23 (22-30) mmol/L Anion Gap 11.6 (5-15) MEQ/L BUN 12 (7-17) mg/dL Creatinine 1.39 H (0.52-1.04) mg/dL Estimated GFR 46.7 ML/MIN Glucose 79 (74-106) mg/dL Calcium 8.8 (8.4-10.2) mg/dL Total Bilirubin 0.10 L (0.2-1.3) mg/dL AST 16 (14-36) U/L ALT 14 (0-35) U/L Alkaline Phosphatase 47 (38-126) U/L Serum Total Protein 6.8 (6.3-8.2) g/dL Albumin 3.7 (3.5-5.0) g/dL Serum , Qual (Negative) Urine Color (YELLOW) Urine Appearance (CLEAR) Urine pH (5-6) Ur Specific Pitts (1.005-1.025) Urine Protein (Negative) Urine Ketones (NEGATIVE) Urine Blood (0-5) Horacio/ul Urine Nitrite (NEGATIVE) Urine Bilirubin (NEGATIVE) Urine Urobilinogen (0-1) mg/dL Ur Leukocyte Esterase (NEGATIVE) Urine WBC (Auto) (0-5) /HPF Urine RBC (Auto) (0-2) /HPF U Epithel Cells (Auto) (FEW) /HPF Urine Bacteria (Auto) (NEGATIVE) /HPF Urine Mucus (Auto) (NEGATIVE) /HPF Urine Culture Reflexed (NO) Urine Glucose (NEGATIVE) mg/dL Phenytoin 4.0 L (10-20) ug/mL 09/04/18 09/04/18 09/05/18 Range/Units 19:15 19:39 05:10 WBC 6.7 (4.0-10.5) K/mm3 RBC 3.99 L (4.1-5.4) M/mm3 Hgb 11.4 L (12.0-16.0) gm/dl Hct 36.0 (35-47) % MCV 90.2 (78-100) fl MCH 28.5 (26-32) pg MCHC 31.7 L (32-36) g/dl RDW 15.2 H (11.5-14.0) % Plt Count 189 (150-450) K/mm3 MPV 11.5 H (6-9.5) fl Gran % 44.0 (36.0-66.0) % Eos # (Auto) 0.11 (0-0.5) Absolute Lymphs (auto) 3.19 (1.0-4.6) Absolute Monos (auto) 0.42 (0.0-1.3) Lymphocytes % 47.8 H (24.0-44.0) % Monocytes % 6.3 (0.0-12.0) % Eosinophils % 1.6 (0.00-5.0) % Basophils % 0.3 (0.0-0.4) % Absolute Granulocytes 2.94 (1.4-6.9) Basophils # 0.02 (0-0.4) Sodium (137-145) mmol/L Potassium (3.5-5.1) mmol/L Chloride (98-107) mmol/L Carbon Dioxide (22-30) mmol/L Anion Gap (5-15) MEQ/L BUN (7-17) mg/dL Creatinine (0.52-1.04) mg/dL Estimated GFR ML/MIN Glucose (74-106) mg/dL Calcium (8.4-10.2) mg/dL Total Bilirubin (0.2-1.3) mg/dL AST (14-36) U/L ALT (0-35) U/L Alkaline Phosphatase (38-126) U/L Serum Total Protein (6.3-8.2) g/dL Albumin (3.5-5.0) g/dL Serum , Qual NEGATIVE (Negative) Urine Color YELLOW (YELLOW) Urine Appearance SLIGHTLY CLOUDY (CLEAR) Urine pH 7.0 (5-6) Ur Specific Pitts 1.008 (1.005-1.025) Urine Protein NEGATIVE (Negative) Urine Ketones NEGATIVE (NEGATIVE) Urine Blood NEGATIVE (0-5) Horacio/ul Urine Nitrite NEGATIVE (NEGATIVE) Urine Bilirubin NEGATIVE (NEGATIVE) Urine Urobilinogen NEGATIVE (0-1) mg/dL Ur Leukocyte Esterase NEGATIVE (NEGATIVE) Urine WBC (Auto) 0-2 (0-5) /HPF Urine RBC (Auto) NONE SEEN (0-2) /HPF U Epithel Cells (Auto) FEW (FEW) /HPF Urine Bacteria (Auto) RARE (NEGATIVE) /HPF Urine Mucus (Auto) SLIGHT (NEGATIVE) /HPF Urine Culture Reflexed NO (NO) Urine Glucose NEGATIVE (NEGATIVE) mg/dL Phenytoin (10-20) ug/mL 09/05/18 09/05/18 09/05/18 Range/Units 05:10 05:10 10:00 WBC (4.0-10.5) K/mm3 RBC (4.1-5.4) M/mm3 Hgb (12.0-16.0) gm/dl Hct (35-47) % MCV (78-100) fl MCH (26-32) pg MCHC (32-36) g/dl RDW (11.5-14.0) % Plt Count (150-450) K/mm3 MPV (6-9.5) fl Gran % (36.0-66.0) % Eos # (Auto) (0-0.5) Absolute Lymphs (auto) (1.0-4.6) Absolute Monos (auto) (0.0-1.3) Lymphocytes % (24.0-44.0) % Monocytes % (0.0-12.0) % Eosinophils % (0.00-5.0) % Basophils % (0.0-0.4) % Absolute Granulocytes (1.4-6.9) Basophils # (0-0.4) Sodium 138 138 (137-145) mmol/L Potassium 4.2 4.2 (3.5-5.1) mmol/L Chloride 113 H 113 H (98-107) mmol/L Carbon Dioxide 16 L* 19 L (22-30) mmol/L Anion Gap 12.6 10.6 (5-15) MEQ/L BUN 11 8 (7-17) mg/dL Creatinine 0.81 0.75 (0.52-1.04) mg/dL Estimated GFR > 60.0 > 60.0 ML/MIN Glucose 84 88 (74-106) mg/dL Calcium 8.5 8.2 L (8.4-10.2) mg/dL Total Bilirubin 0.20 (0.2-1.3) mg/dL AST 12 L (14-36) U/L ALT 14 (0-35) U/L Alkaline Phosphatase 44 (38-126) U/L Serum Total Protein 6.5 (6.3-8.2) g/dL Albumin 3.4 L (3.5-5.0) g/dL Serum , Qual (Negative) Urine Color (YELLOW) Urine Appearance (CLEAR) Urine pH (5-6) Ur Specific Pitts (1.005-1.025) Urine Protein (Negative) Urine Ketones (NEGATIVE) Urine Blood (0-5) Horacio/ul Urine Nitrite (NEGATIVE) Urine Bilirubin (NEGATIVE) Urine Urobilinogen (0-1) mg/dL Ur Leukocyte Esterase (NEGATIVE) Urine WBC (Auto) (0-5) /HPF Urine RBC (Auto) (0-2) /HPF U Epithel Cells (Auto) (FEW) /HPF Urine Bacteria (Auto) (NEGATIVE) /HPF Urine Mucus (Auto) (NEGATIVE) /HPF Urine Culture Reflexed (NO) Urine Glucose (NEGATIVE) mg/dL Phenytoin 9.0 L (10-20) ug/mL - Procedures and Test Procedures and Tests throughout Hospitalization: Therapy Orders & Screens 09/04/18 23:02 Peak Expiratory Flow Rate ONCE Comment: Reason For Exam: Diagnosis: seizure like activity Respiratory Therapy Assessment DAILY Comment: Diagnosis: seizure like activity - Discharge Discharge Date: 09/05/18 Disposition: Home, Self-Care Condition: Stable Prescriptions: No Action Fluoxetine HCl 20 mg [Prozac 20 MG] 20 mg PO DAILY Aripiprazole [Abilify] 5 mg PO HS Phenytoin Sod Extended 100 mg* [Dilantin 100 MG] 200 mg PO BID #120 capsule Instructions: Seizures, Adult (DC), Bedbugs Follow up with: JORGE GODINEZ MD [Primary Care Provider] - 09/12/18 2:30 pm (at [place]) Forms: Discharge Instructions, Work/School Release Form
== END 2018-09-05 12:55 | disposition home or self-care (01) ==
LOC: ED 18:23 → MED SURG 21:35
PROVIDERS: ADMIT General Practice; ATTEND General Practice
DX: R56.9 Unspecified convulsions (principal); F17.200 Nicotine dependence, unspecified, uncomplicated
CPT/HCPCS: 36415; 80048; 80053; 80185; 81001; 81025; 84146; 85025; 93005; 93268; 94762; 96365; 99285; G0378; 99284; Q2009; A9270-GY

== ENCOUNTER 2018-11-02 15:30 | Emergency (ER) | payer MEDICAID ==
[2018-11-02] MEDS ORDERED: Sodium Chloride 0.9% 1000 ML 1,000 ML IV STA (15:34)
[2018-11-02] MEDS ORDERED: Zofran 4 MG/2 ML VIAL IV ONE (15:34)
[2018-11-02] MEDS ORDERED: Keppra 500 MG/5 ML*** 1,000 MG in D5w 100ML Mini Bag 100 ML 100 ML IV ONE (15:34)
[2018-11-02] MEDS ORDERED: Zofran 4 MG/2 ML VIAL ONE (15:44)
[2018-11-02] MEDS ORDERED: Sodium Chloride 0.9% 1000 ML 1,000 ML ONE (15:44)
[2018-11-02 16:10] LABS: BASOPHIL % 0.3 % (0.0-0.4); Basophil (Absolute #) 0.02 (0-0.4); Eosinophil % 2.1 % (0.00-5.0); Eosinophil (Absolute #) 0.15 (0-0.5); Granulocyte Absolute (ANC) 4.17 (1.4-6.9); Granulocytes % 59.4 % (36.0-66.0); Hematocrit 38.2 % (35-47); Hemoglobin 12.8 gm/dl (12.0-16.0); Lymphocyte (Absolute #) 2.07 (1.0-4.6); Lymphocytes % 29.4 % (24.0-44.0); Mean Cell Volume 93.2 fl (78-100); Mean Corpuscular Hemoglobin 31.2 pg (26-32); Mean Corpuscular Hgb Concent. 33.5 g/dl (32-36); Mean Platelet Volume 10.7 fl (6-9.5); Monocyte (Absolute #) 0.62 (0.0-1.3); Monocytes % 8.8 % (0.0-12.0); Platelet Count 234 K/mm3 (150-450)
[2018-11-02 16:23] LABS: ALBUMIN 4.3 g/dL (3.5-5.0); ALKALINE PHOSPHATASE 64 U/L (38-126); ANION GAP 12.4 MEQ/L (5-15); BLOOD UREA NITROGEN 20 mg/dL (7-17); CHLORIDE 108 mmol/L (98-107); Carbon Dioxide 23 mmol/L (22-30); Creatinine 1 0.79 mg/dL (0.52-1.04); Glucose 80 mg/dL (74-106); Potassium 4.3 mmol/L (3.5-5.1); SGOT/AST 25 U/L (14-36); SGPT/ALT 24 U/L (0-35); SODIUM 139 mmol/L (137-145); Total Protein 7.5 g/dL (6.3-8.2)
[2018-11-02 17:02] VITALS: BP 106/80; PULSE 78; O2SAT 95
--- NOTE | 2018-11-02 17:35 | ERPHSYRPT ---
- History of Present Illness Source: patient, EMS Exam Limitations: no limitations Patient Subjective Stated Complaint: Medics states "She had a seizure before we got there and two more during transport.". Pt states "I had a seizure two months ago and Dr. Godinez put me on dilantin." Triage Nursing Assessment: Pt presented via [facility] ambulance. upon arrival pt alert and oriented X 3, skin pwd. Pt able to speak in clear full sentences. During IV placement pt started to lift herself off the bed and fall back several times however, pt did not move the arm that the IV was being placed in. While placeing EKG electrodes, pt would roll her eyes up and start to shake but would stop when told to. Physician History: Pt is a 33 y/o female that presented to the ED via EMS, secondary to seizure. During pt seizure episode, she was conversive, oriented and giving history. There was no post ichtal episode. She was following commands. No urine or bowel loss of control. Pt states, she is not seeing Neurology and her PCP is managing her seizure. Timing/Duration: today Severity of Symptoms-Max: mild Severity of Symptoms-Current: mild Previous symptoms: same symptoms as today Allergies/Adverse Reactions: shrimp Allergy (Severe, Verified 11/02/18 15:45) venom-honey bee Allergy (Severe, Verified 11/02/18 15:45) venom-wasp Allergy (Severe, Verified 11/02/18 15:45) latex Allergy (Verified 09/03/18 01:43) Home Medications: Aripiprazole [Abilify] 5 mg PO HS 09/03/18 [History] Fluoxetine HCl 20 mg [Prozac 20 MG] 20 mg PO DAILY 09/03/18 [History] Hx Tetanus, Diphtheria Vaccination/Date Given: Yes Hx Influenza Vaccination/Date Given: No Hx Pneumococcal Vaccination/Date Given: No Immunizations Up to Date: Yes - Past Medical History Pertinent Past Medical History: Yes Neurological History: Seizures ENT History: No Pertinent History Cardiac History: No Pertinent History Respiratory History: Asthma Endocrine Medical History: No Pertinent History Musculoskeletal History: No Pertinent History GI Medical History: GERD History: No Pertinent History Psycho-Social History: No Pertinent History Female Reproductive Disorders: No Pertinent History - Past Surgical History Past Surgical History: Yes Neuro Surgical History: No Pertinent History Cardiac: No Pertinent History Respiratory: No Pertinent History Gastrointestinal: No Pertinent History Genitourinary: No Pertinent History Musculoskeletal: No Pertinent History Female Surgical History: Dilation & Curettage, Section - Social History Smoking Status: Current every day smoker How long have you smoked: years Exposure to second hand smoke: Yes Drug Use: none Patient Lives Alone: No - Female History Hx Last Menstrual Period: 11/02/2018 Hx Now: No - Review of Systems Constitutional: No Fever, No Chills Eyes: No Symptoms Ears, Nose, & Throat: No Symptoms Respiratory: No Cough, No Dyspnea Cardiac: No Chest Pain, No Edema, No Syncope Abdominal/Gastrointestinal: No Abdominal Pain, No Nausea, No Vomiting, No Diarrhea Genitourinary Symptoms: No Dysuria Musculoskeletal: No Back Pain, No Neck Pain Neurological: Seizure, No Dizziness, No Focal Weakness, No Sensory Changes Psychological: No Symptoms - Nursing Vital Signs Nursing Vital Signs: Initial Vital Signs Temperature 99.8 F 11/02/18 15:32 Pulse Rate 76 11/02/18 15:32 Respiratory Rate 16 11/02/18 15:32 Blood Pressure 100/74 11/02/18 15:32 O2 Sat by Pulse Oximetry 97 11/02/18 15:32 Pain Scale Pain Intensity 0 - Physical Exam General Appearance: no apparent distress Eyes, Ears, Nose, Throat Exam: normal ENT inspection, moist mucous membranes Neck Exam: normal inspection, non-tender, supple Respiratory Exam: normal breath sounds, lungs clear, No respiratory distress Cardiovascular Exam: regular rate/rhythm, No edema Gastrointestinal/Abdominal Exam: soft, No tenderness, No distention Extremities Exam: normal inspection, normal range of motion, No evidence of injury, No edema Neurological Exam: alert, 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, oriented x 3, responds to pain, flat Behavior/Eye Contact/Speech: alert & cooperative, normal speech Skin Exam: normal color SpO2 Interpretation: normal SpO2: 95 O2 Delivery: Room Air - Course Nursing assessment & vital signs reviewed: Yes EKG Interpreted by Me: RATE (7 bpm), Sinus Rhythm, NORMAL AXIS, NORMAL QRS Ordered Tests: Active Orders 24 hr Category Date Time Status CBC W DIFF Stat Lab 11/02/18 15:55 Completed CMP Stat Lab 11/02/18 15:55 Completed CULTURE,URINE Stat Lab 11/02/18 15:35 Uncollected HCG,QUALITATIVE URINE Stat Lab 11/02/18 15:34 Uncollected Lactic Acid Stat Lab 11/02/18 15:58 Completed UA W/RFX UR CULTURE Stat Lab 11/02/18 15:35 Uncollected Urine Triage Profile Stat Lab 11/02/18 15:35 Uncollected Medication Summary Discontinued Medications Generic Name Dose Route Start Last Admin Trade Name Tylerq PRN Reason Stop Dose Admin Levetiracetam 1,000 mg/ 110 mls @ 400 mls/hr 11/02/18 15:34 11/02/18 15:49 Dextrose IV 11/02/18 15:50 400 mls/hr STAT ONE Administration Sodium Chloride 1,000 mls @ 999 mls/hr 11/02/18 15:34 11/02/18 15:49 Sodium Chloride 0.9% 1000 Ml IV 11/02/18 16:34 999 mls/hr .Q1H1M STA Administration Sodium Chloride Confirm 11/02/18 15:44 Sodium Chloride 0.9% 1000 Ml Administered 11/02/18 15:45 Dose 1,000 mls @ ud .ROUTE .STK-MED ONE Ondansetron HCl 4 mg 11/02/18 15:34 11/02/18 15:49 Zofran 4 Mg/2 Ml Vial IV 11/02/18 15:35 4 mg STAT ONE Administration Ondansetron HCl Confirm 11/02/18 15:44 Zofran 4 Mg/2 Ml Vial Administered 11/02/18 15:45 Dose 4 mg .ROUTE .STK-MED ONE Lab/Rad Data: Laboratory Result Diagrams 11/02/18 15:55 11/02/18 15:55 Laboratory Results 11/02/18 11/02/18 11/02/18 Range/Units 15:58 15:55 15:55 WBC (4.0-10.5) K/mm3 RBC (4.1-5.4) M/mm3 Hgb (12.0-16.0) gm/dl Hct (35-47) % MCV (78-100) fl MCH (26-32) pg MCHC (32-36) g/dl RDW (11.5-14.0) % Plt Count (150-450) K/mm3 MPV (6-9.5) fl Gran % (36.0-66.0) % Eos # (Auto) (0-0.5) Absolute Lymphs (auto) (1.0-4.6) Absolute Monos (auto) (0.0-1.3) Lymphocytes % (24.0-44.0) % Monocytes % (0.0-12.0) % Eosinophils % (0.00-5.0) % Basophils % (0.0-0.4) % Absolute Granulocytes (1.4-6.9) Basophils # (0-0.4) Sodium 139 (137-145) mmol/L Potassium 4.3 (3.5-5.1) mmol/L Chloride 108 H (98-107) mmol/L Carbon Dioxide 23 (22-30) mmol/L Anion Gap 12.4 (5-15) MEQ/L BUN 20 H (7-17) mg/dL Creatinine 0.79 (0.52-1.04) mg/dL Estimated GFR > 60.0 ML/MIN Glucose 80 (74-106) mg/dL Lactic Acid 1.2 (0.4-2.0) Calcium 10.0 (8.4-10.2) mg/dL Total Bilirubin 0.20 (0.2-1.3) mg/dL AST 25 (14-36) U/L ALT 24 (0-35) U/L Alkaline Phosphatase 64 (38-126) U/L Serum Total Protein 7.5 (6.3-8.2) g/dL Albumin 4.3 (3.5-5.0) g/dL Phenytoin 10.4 (10-20) ug/mL 11/02/18 Range/Units 15:55 WBC 7.0 (4.0-10.5) K/mm3 RBC 4.10 (4.1-5.4) M/mm3 Hgb 12.8 (12.0-16.0) gm/dl Hct 38.2 (35-47) % MCV 93.2 (78-100) fl MCH 31.2 (26-32) pg MCHC 33.5 (32-36) g/dl RDW 15.0 H (11.5-14.0) % Plt Count 234 (150-450) K/mm3 MPV 10.7 H (6-9.5) fl Gran % 59.4 (36.0-66.0) % Eos # (Auto) 0.15 (0-0.5) Absolute Lymphs (auto) 2.07 (1.0-4.6) Absolute Monos (auto) 0.62 (0.0-1.3) Lymphocytes % 29.4 (24.0-44.0) % Monocytes % 8.8 (0.0-12.0) % Eosinophils % 2.1 (0.00-5.0) % Basophils % 0.3 (0.0-0.4) % Absolute Granulocytes 4.17 (1.4-6.9) Basophils # 0.02 (0-0.4) Sodium (137-145) mmol/L Potassium (3.5-5.1) mmol/L Chloride (98-107) mmol/L Carbon Dioxide (22-30) mmol/L Anion Gap (5-15) MEQ/L BUN (7-17) mg/dL Creatinine (0.52-1.04) mg/dL Estimated GFR ML/MIN Glucose (74-106) mg/dL Lactic Acid (0.4-2.0) Calcium (8.4-10.2) mg/dL Total Bilirubin (0.2-1.3) mg/dL AST (14-36) U/L ALT (0-35) U/L Alkaline Phosphatase (38-126) U/L Serum Total Protein (6.3-8.2) g/dL Albumin (3.5-5.0) g/dL Phenytoin (10-20) ug/mL - Progress Progress: improved Progress Note: 11/02/18 17:36 Pt was seen and examined. Keppra 1gr IV was ordered. Lactic acid was normal. Dilantin level was at goal and all lab work were normal. Pt did not have any post ichtal episode, and was following commands and answering questions while having seizure. She had pseudoseizure, and should be evaluated by Neurology. She is cleared for d/c. Discussed with : Alana Will see patient in: office Counseled pt/family regarding: need for follow-up - Departure Departure Disposition: Home Clinical Impression: Psychiatric pseudoseizure Condition: Stable Critical Care Time: No Referrals: JORGE GODINEZ MD [Primary Care Provider] - Additional Instructions: F/U with PCP, and get evaluated by Neurology. Continue taking your meds as ordered.
== END 2018-11-02 18:17 | disposition home or self-care (01) ==
LOC: ED 15:30
DX: F44.5 Conversion disorder with seizures or convulsions (principal)
CPT/HCPCS: 36000; 36415; 80053; 80185; 83605; 84146; 85025; 96360; 96365; 96374; 99284; J1953; J2405

== ENCOUNTER 2018-11-16 19:45 | Emergency (ER) | payer MEDICAID, OTHER ==
[2018-11-16] MEDS ORDERED: Sodium Chloride 0.9% 1000 ML 0 ML ONE (22:12)
[2018-11-16] MEDS ORDERED: Zofran 4 MG/2 ML VIAL ONE ×2 (22:12→22:18)
--- NOTE | 2018-11-16 22:12 | ERPHSYRPT ---
- History of Present Illness Time Seen by Provider: 11/16/18 22:05 Historian: patient Exam Limitations: no limitations Patient Subjective Stated Complaint: For past 3 days pt having symptoms of abd pain, n/v. States that last noc abd pain worse. States now having n/v/d. Has vomited 2xs today and diarrhea 5 xs today Triage Nursing Assessment: Pt A&O x3, c/o abd pain x3 days, worse last noc and today. States she has had n/v/d today. Pt currently having some dry heaves. Skin warm dry and pink. Denies abd tenderness with palpation. States abd pain is constant and describes as tightness with occassional stabbing pains. Pt also states she has decreased appettie. Physician History: 2 to 3 days abdominal pain; worse yesterday with severe cramping. At 0145 thuis rolando woke up with N/V and D all at once. Has had wattery stool 5 times since. Still with cramping Quality: cramping Abdominal Pain Onset Location: RLQ, LLQ Pain Radiation: no radiation Severity of Pain-Max: moderate Severity of Pain-Current: moderate (with cramping) Modifying Factors: Improves With: nothing Associated Symptoms: nausea, vomiting Allergies/Adverse Reactions: shrimp Allergy (Severe, Verified 11/16/18 20:00) Difficulty Breathing venom-honey bee Allergy (Severe, Verified 11/16/18 20:00) Difficulty Breathing venom-wasp Allergy (Severe, Verified 11/16/18 20:00) Difficulty Breathing menthol [From Icy Hot] Allergy (Intermediate, Verified 11/16/18 20:00) Hives methyl salicylate [From Icy Hot] Allergy (Intermediate, Verified 11/16/18 20:00) Hives nicotine [From Nicoderm CQ] Allergy (Intermediate, Verified 11/16/18 20:00) Rash latex Allergy (Mild, Verified 11/16/18 20:00) Rash Home Medications: Aripiprazole [Abilify] 10 mg PO HS 09/03/18 [History] Fluoxetine HCl 20 mg [Prozac 20 MG] 20 mg PO DAILY 09/03/18 [History] Hx Tetanus, Diphtheria Vaccination/Date Given: Yes Hx Influenza Vaccination/Date Given: No Hx Pneumococcal Vaccination/Date Given: No Immunizations Up to Date: Yes (pt stated) - Review of Systems Constitutional: No Symptoms Respiratory: No Symptoms Cardiac: No Symptoms Abdominal/Gastrointestinal: Abdominal Pain, Nausea, Vomiting, Diarrhea Genitourinary Symptoms: No Symptoms Skin: No Symptoms Psychological: No Symptoms All Other Systems: Reviewed and Negative - Past Medical History Pertinent Past Medical History: Yes Neurological History: Migraines, Seizures ENT History: No Pertinent History Cardiac History: No Pertinent History Respiratory History: Asthma Endocrine Medical History: No Pertinent History Musculoskeletal History: No Pertinent History GI Medical History: GERD History: No Pertinent History Psycho-Social History: Anxiety, Depression Female Reproductive Disorders: No Pertinent History - Past Surgical History Past Surgical History: Yes Neuro Surgical History: No Pertinent History Cardiac: No Pertinent History Respiratory: No Pertinent History Gastrointestinal: No Pertinent History Genitourinary: No Pertinent History Musculoskeletal: No Pertinent History Female Surgical History: Dilation & Curettage, Section Other Surgical History: tubal ligation - Social History Smoking Status: Current every day smoker How long have you smoked: 7 yrs Exposure to second hand smoke: Yes Drug Use: none Patient Lives Alone: No - Female History Hx Now: No - Nursing Vital Signs Nursing Vital Signs: Initial Vital Signs Temperature 98.6 F 11/16/18 19:46 Pulse Rate 86 11/16/18 19:46 Respiratory Rate 20 11/16/18 19:46 Blood Pressure 116/77 11/16/18 19:46 O2 Sat by Pulse Oximetry 97 11/16/18 19:46 Pain Scale Pain Intensity 0 - Physical Exam General Appearance: no apparent distress, alert Eye Exam: PERRL/EOMI Ears, Nose, Throat Exam: normal ENT inspection Respiratory Exam: normal breath sounds, lungs clear, airway intact Cardiovascular Exam: regular rate/rhythm, normal heart sounds, normal peripheral pulses Gastrointestinal/Abdomen Exam: soft, tenderness (mild lower abdomen) Extremity Exam: normal inspection, No pedal edema, No swelling Neurologic Exam: alert, oriented x 3, cooperative, normal mood/affect Skin Exam: normal color, warm, dry SpO2 Interpretation: normal SpO2: 97 O2 Delivery: Room Air - Course Nursing assessment & vital signs reviewed: Yes Ordered Tests: Active Orders 24 hr Category Date Time Status CBC W DIFF Stat Lab 11/16/18 22:10 Completed CMP Stat Lab 11/16/18 22:10 Completed LIPASE Stat Lab 11/16/18 22:10 Completed Medication Summary Discontinued Medications Generic Name Dose Route Start Last Admin Trade Name [place] PRN Reason Stop Dose Admin Sodium Chloride 1,000 mls @ 999 mls/hr 11/16/18 22:09 11/16/18 23:43 Sodium Chloride 0.9% 1000 Ml IV 11/16/18 23:09 Infused .Q1H1M STA Infusion Sodium Chloride Confirm 11/16/18 22:12 Sodium Chloride 0.9% 1000 Ml Administered 11/16/18 22:13 Dose 1,000 mls @ ud .ROUTE .STK-MED ONE Sodium Chloride Confirm 11/16/18 22:18 Sodium Chloride 0.9% 1000 Ml Administered 11/16/18 22:19 Dose 1,000 mls @ ud .ROUTE .STK-MED ONE Sodium Chloride Confirm 11/16/18 22:26 Sodium Chloride 0.9% 1000 Ml Administered 11/16/18 22:27 Dose 1,000 mls @ ud .ROUTE .STK-MED ONE Ondansetron HCl 4 mg 11/16/18 22:09 11/16/18 22:14 Zofran 4 Mg/2 Ml Vial IV 11/16/18 22:10 4 mg STAT ONE Administration Ondansetron HCl Confirm 11/16/18 22:12 Zofran 4 Mg/2 Ml Vial Administered 11/16/18 22:13 Dose 4 mg .ROUTE .STK-MED ONE Ondansetron HCl Confirm 11/16/18 22:18 Zofran 4 Mg/2 Ml Vial Administered 11/16/18 22:19 Dose 4 mg .ROUTE .STK-MED ONE Ondansetron HCl 4 mg 11/16/18 23:56 11/17/18 00:10 Zofran Odt 4 Mg PO 11/16/18 23:57 4 mg STAT ONE Administration Ondansetron HCl Confirm 11/17/18 00:02 Zofran Odt 4 Mg Administered 11/17/18 00:03 Dose 4 mg .ROUTE .STK-MED ONE Lab/Rad Data: Laboratory Result Diagrams 11/16/18 22:10 11/16/18 22:10 Laboratory Results 11/16/18 11/16/18 Range/Units 22:10 22:10 WBC 7.0 (4.0-10.5) K/mm3 RBC 4.41 (4.1-5.4) M/mm3 Hgb 13.7 (12.0-16.0) gm/dl Hct 41.2 (35-47) % MCV 93.4 (78-100) fl MCH 31.1 (26-32) pg MCHC 33.3 (32-36) g/dl RDW 15.7 H (11.5-14.0) % Plt Count 219 (150-450) K/mm3 MPV 10.8 H (6-9.5) fl Gran % 53.1 (36.0-66.0) % Eos # (Auto) 0.12 (0-0.5) Absolute Lymphs (auto) 2.48 (1.0-4.6) Absolute Monos (auto) 0.65 (0.0-1.3) Lymphocytes % 35.6 (24.0-44.0) % Monocytes % 9.3 (0.0-12.0) % Eosinophils % 1.7 (0.00-5.0) % Basophils % 0.3 (0.0-0.4) % Absolute Granulocytes 3.70 (1.4-6.9) Basophils # 0.02 (0-0.4) Sodium 139 (137-145) mmol/L Potassium 4.1 (3.5-5.1) mmol/L Chloride 107 (98-107) mmol/L Carbon Dioxide 24 (22-30) mmol/L Anion Gap 11.6 (5-15) MEQ/L BUN 15 (7-17) mg/dL Creatinine 0.77 (0.52-1.04) mg/dL Estimated GFR > 60.0 ML/MIN Glucose 80 (74-106) mg/dL Calcium 10.1 (8.4-10.2) mg/dL Total Bilirubin 0.30 (0.2-1.3) mg/dL AST 21 (14-36) U/L ALT 27 (0-35) U/L Alkaline Phosphatase 73 (38-126) U/L Serum Total Protein 8.0 (6.3-8.2) g/dL Albumin 4.5 (3.5-5.0) g/dL Lipase 126 (23-300) U/L - Progress Progress: improved (With the fluid and with the nausea medication) - Departure Departure Disposition: Home Clinical Impression: Gastroenteritis Condition: Stable Critical Care Time: No Referrals: JORGE GODINEZ MD [Primary Care Provider] - Instructions: Diarrhea and Traveler's Diarrhea -- Adult, Nausea -- Adult, Vomiting -- Adult Additional Instructions: Clear liquids only for next 12 hours; advance diet slowly thereafter as tolerated. Use Zofran if needed; a prescription is being sent to your preferred pharmacy. No work until Wednesday; note is written for you. Forms: Work/School Release Form Prescriptions: Ondansetron ODT 4 MG [Zofran Odt 4 mg] 4 mg PO Q6H PRN PRN #10 tab.rapdis PRN Reason: Nausea/Vomiting
[2018-11-16] MEDS: Sodium Chloride 0.9% 1000 ML 1,000 ML IV STA (22:13)
[2018-11-16] MEDS: Zofran 4 MG/2 ML VIAL IV ONE (22:14)
[2018-11-16] MEDS ORDERED: Sodium Chloride 0.9% 1000 ML 1,000 ML ONE ×2 (22:18→22:26)
[2018-11-16 22:23] LABS: BASOPHIL % 0.3 % (0.0-0.4); Basophil (Absolute #) 0.02 (0-0.4); Eosinophil % 1.7 % (0.00-5.0); Eosinophil (Absolute #) 0.12 (0-0.5); Granulocytes % 53.1 % (36.0-66.0); Hematocrit 41.2 % (35-47); Hemoglobin 13.7 gm/dl (12.0-16.0); Lymphocyte (Absolute #) 2.48 (1.0-4.6); Lymphocytes % 35.6 % (24.0-44.0); Mean Cell Volume 93.4 fl (78-100); Mean Corpuscular Hemoglobin 31.1 pg (26-32); Mean Corpuscular Hgb Concent. 33.3 g/dl (32-36); Mean Platelet Volume 10.8 fl (6-9.5); Monocyte (Absolute #) 0.65 (0.0-1.3); Monocytes % 9.3 % (0.0-12.0); Platelet Count 219 K/mm3 (150-450); Red Blood Count 4.41 M/mm3 (4.1-5.4); Red Cell Distribution Width 15.7 % (11.5-14.0)
[2018-11-16 22:29] LABS: ALBUMIN 4.5 g/dL (3.5-5.0); ALKALINE PHOSPHATASE 73 U/L (38-126); ANION GAP 11.6 MEQ/L (5-15); BLOOD UREA NITROGEN 15 mg/dL (7-17); CHLORIDE 107 mmol/L (98-107); Calcium 10.1 mg/dL (8.4-10.2); Carbon Dioxide 24 mmol/L (22-30); Creatinine 1 0.77 mg/dL (0.52-1.04); Glucose 80 mg/dL (74-106); LIPASE 126 U/L (23-300); Potassium 4.1 mmol/L (3.5-5.1); SGOT/AST 21 U/L (14-36); SGPT/ALT 27 U/L (0-35); SODIUM 139 mmol/L (137-145)
[2018-11-16 23:00] VITALS: BP 99/56; PULSE 66
[2018-11-16 23:44] VITALS: O2SAT 97
[2018-11-17] MEDS ORDERED: ZOFRAN ODT 4 MG ONE (00:02)
[2018-11-17] MEDS: ZOFRAN ODT 4 MG PO ONE (00:10)
== END 2018-11-17 00:14 | disposition home or self-care (01) ==
LOC: ED 19:45
DX: K52.9 Noninfective gastroenteritis and colitis, unspecified (principal)
CPT/HCPCS: 36415; 80053; 83690; 85025; 96360; 96374; 99284; J2405; Q0162

== ENCOUNTER 2019-02-19 13:57 | Emergency (ER) | payer MEDICAID, OTHER ==
[2019-02-19] MEDS: Dilantin 100 MG PO ONE (14:48)
[2019-02-19 15:16] LABS: ISTAT CREA 0.9 mg/dL (0.6-1.3)
[2019-02-19 15:17] LABS: Absolute Neutrophil Ct (ANC) 4.04 (1.4-6.9); BASOPHIL % 0.3 % (0.0-0.4); Basophil (Absolute #) 0.02 (0-0.4); Eosinophil % 0.7 % (0.00-5.0); Eosinophil (Absolute #) 0.05 (0-0.5); Hemoglobin 12.1 gm/dl (12.0-16.0); Lymphocyte (Absolute #) 2.34 (1.0-4.6); Lymphocytes % 33.6 % (24.0-44.0); Mean Corpuscular Hemoglobin 31.9 pg (26-32); Mean Corpuscular Hgb Concent. 33.6 g/dl (32-36); Monocyte (Absolute #) 0.52 (0.0-1.3); Monocytes % 7.5 % (0.0-12.0); Neutrophil % 57.9 % (36.0-66.0); Platelet Count 201 K/mm3 (150-450); Red Blood Count 3.79 M/mm3 (4.1-5.4)
--- NOTE | 2019-02-19 15:38 | ERPHSYRPT ---
- History of Present Illness Time Seen by Provider: 02/19/19 14:12 Source: patient, EMS Exam Limitations: no limitations Patient Subjective Stated Complaint: pt here for seizure today at work, she has hx of seizures and take dilantin, which she states she has not been taking correctly. Triage Nursing Assessment: pt arrived per ambulance, alert, resp easy ,pupils equal and reactive, moves all ext well, follows commands well, Physician History: the patient is a 33-year-old female with a past medical history significant for seizures for which he takes Dilantin, anxiety, and depression presents with the chief complaint of a seizure. Onset was around 1:30 this afternoon while she was at work. She states that she was involved in a stressful conversation and with her boss was running to the right of her coworkers including herself when she suddenly started to feel her legs jerking and a Timing/Duration: today (and and) Character of Deficits: none ( and) Baseline/Normal Cognition: alert oriented x 3 Allergies/Adverse Reactions: shrimp Allergy (Severe, Verified 02/19/19 14:05) Difficulty Breathing venom-honey bee Allergy (Severe, Verified 02/19/19 14:05) Difficulty Breathing venom-wasp Allergy (Severe, Verified 02/19/19 14:05) Difficulty Breathing menthol [From Icy Hot] Allergy (Intermediate, Verified 02/19/19 14:05) Hives methyl salicylate [From Icy Hot] Allergy (Intermediate, Verified 02/19/19 14:05) Hives nicotine [From Nicoderm CQ] Allergy (Intermediate, Verified 02/19/19 14:05) Rash latex Allergy (Mild, Verified 02/19/19 14:05) Rash Home Medications: Aripiprazole [Abilify] 10 mg PO HS 09/03/18 [History] Fluoxetine HCl 20 mg [Prozac 20 MG] 20 mg PO DAILY 09/03/18 [History] Hx Tetanus, Diphtheria Vaccination/Date Given: Yes Hx Influenza Vaccination/Date Given: No Hx Pneumococcal Vaccination/Date Given: No Immunizations Up to Date: Yes - Review of Systems Constitutional: No Symptoms, No Fever, No Chills Eyes: No Symptoms Ears, Nose, & Throat: No Symptoms Respiratory: No Symptoms, No Cough Cardiac: No Symptoms, No Chest Pain Abdominal/Gastrointestinal: No Nausea Genitourinary Symptoms: No Symptoms Musculoskeletal: No Symptoms Skin: No Symptoms Neurological: Headache, Seizure Psychological: Anxiety, Other ("stress") All Other Systems: Reviewed and Negative - Past Medical History Pertinent Past Medical History: Yes Neurological History: Migraines, Seizures ENT History: No Pertinent History Cardiac History: No Pertinent History Respiratory History: Asthma Endocrine Medical History: No Pertinent History Musculoskeletal History: No Pertinent History GI Medical History: GERD History: No Pertinent History Psycho-Social History: Anxiety, Depression Female Reproductive Disorders: No Pertinent History - Past Surgical History Past Surgical History: Yes Neuro Surgical History: No Pertinent History Cardiac: No Pertinent History Respiratory: No Pertinent History Gastrointestinal: No Pertinent History Genitourinary: No Pertinent History Musculoskeletal: No Pertinent History Female Surgical History: Dilation & Curettage, Section Other Surgical History: tubal ligation - Social History Smoking Status: Current every day smoker How long have you smoked: 7 yrs Exposure to second hand smoke: Yes Drug Use: none Patient Lives Alone: Yes - Female History Hx Last Menstrual Period: nov Hx Now: No - Nursing Vital Signs Nursing Vital Signs: Initial Vital Signs Temperature 97.6 F 02/19/19 13:58 Pulse Rate 67 02/19/19 13:58 Respiratory Rate 16 02/19/19 13:58 Blood Pressure 108/55 02/19/19 13:58 O2 Sat by Pulse Oximetry 98 02/19/19 13:58 Pain Scale Pain Intensity 0 - [place]ao Coma Scale Best Eye Response ([place]): (4) open spontaneously Best Verbal Response ([place]): (5) oriented Best Motor Response ([place]): (6) obeys commands [place] Total: 15 - Physical Exam General Appearance: no apparent distress, alert Eye Exam: bilateral eye: normal inspection, PERRL, EOMI Ears, Nose, Throat Exam: moist mucous membranes, other (No evidence of tongue trauma), No pharyngeal erythema, No tonsillar exudate Respiratory: normal breath sounds, lungs clear, No chest tenderness Cardiovascular: regular rate/rhythm, normal heart sounds, normal peripheral pulses, capillary refill <2 sec, No tachycardia Gastrointestinal: soft, No tenderness, No distention Pelvic Exam: deferred Rectal Exam: deferred Back Exam: normal inspection Extremity Exam: normal inspection, No tenderness Peripheral Pulses: dorsalis-pedis (R): 2+, dorsalis-pedis (L): 2+ Mental Status: alert, oriented x 3, cooperative, No disoriented to person, No disoriented to time, 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: normal speech, PERRL, No abnormal eye position, No abnormal pupil position, No abnormal speech, No facial asymmetry Motor/Sensory: no motor deficit (No ankle clonus, Fudger strength 4+ bilaterally , dorsiflexion and plantar flexion 4+ bilaterally), no sensory deficit, no pronator drift, No sensory deficit, No weak motor strength RUE, No weak motor strength LUE, No weak motor strength RLE, No weak motor strength LLE Skin Exam: normal color, warm, dry, No rash, No petechiae, No jaundice SpO2 Interpretation: normal SpO2: 99 O2 Delivery: Room Air - Course Nursing assessment & vital signs reviewed: Yes EKG Interpreted by Me: RATE, Sinus Rhythm, NORMAL AXIS, NORMAL ST-T - CT Exams Head CT Interpretation: Negative Ordered Tests: Medication Summary Discontinued Medications Generic Name Dose Route Start Last Admin Trade Name Freq PRN Reason Stop Dose Admin Phenytoin Sodium 200 mg 02/19/19 14:25 02/19/19 14:48 Dilantin 100 Mg PO 02/19/19 14:26 200 mg ONCE ONE Administration Lab/Rad Data: Laboratory Result Diagrams 02/19/19 14:45 02/19/19 14:45 Laboratory Results 02/19/19 02/19/19 02/19/19 Range/Units 14:55 14:45 14:45 WBC (4.0-10.5) K/mm3 RBC (4.1-5.4) M/mm3 Hgb (12.0-16.0) gm/dl Hct (35-47) % MCV (78-100) fl MCH (26-32) pg MCHC (32-36) g/dl RDW (11.5-14.0) % Plt Count (150-450) K/mm3 MPV (6-9.5) fl Gran % (36.0-66.0) % Eos # (Auto) (0-0.5) Absolute Lymphs (auto) (1.0-4.6) Absolute Monos (auto) (0.0-1.3) Lymphocytes % (24.0-44.0) % Monocytes % (0.0-12.0) % Eosinophils % (0.00-5.0) % Basophils % (0.0-0.4) % Absolute Granulocytes (1.4-6.9) Basophils # (0-0.4) Sodium Direct 140 (138-146) mmol/L Potassium 3.7 (3.5-4.9) mmol/L Chloride 103 (98-109) mmol/L Carbon Dioxide 24 (24-29) mmol/L Venous BUN 8 (8-26) mg/dL Creatinine 0.9 (0.6-1.3) mg/dL Glucose 83 (70-105) mg/dL Lactic Acid (0.4-2.0) Ionized Calcium 1.30 (1.12-1.32) mmol/L Phosphorus GREY TENDER Magnesium GREY TENDER Urine HCG, Qual NEGATIVE (Negative) 02/19/19 02/19/19 Range/Units 14:45 14:42 WBC 7.0 (4.0-10.5) K/mm3 RBC 3.79 L (4.1-5.4) M/mm3 Hgb 12.1 (12.0-16.0) gm/dl Hct 36.0 (35-47) % MCV 95.0 (78-100) fl MCH 31.9 (26-32) pg MCHC 33.6 (32-36) g/dl RDW 13.0 (11.5-14.0) % Plt Count 201 (150-450) K/mm3 MPV 11.0 H (6-9.5) fl Gran % 57.9 (36.0-66.0) % Eos # (Auto) 0.05 (0-0.5) Absolute Lymphs (auto) 2.34 (1.0-4.6) Absolute Monos (auto) 0.52 (0.0-1.3) Lymphocytes % 33.6 (24.0-44.0) % Monocytes % 7.5 (0.0-12.0) % Eosinophils % 0.7 (0.00-5.0) % Basophils % 0.3 (0.0-0.4) % Absolute Granulocytes 4.04 (1.4-6.9) Basophils # 0.02 (0-0.4) Sodium Direct (138-146) mmol/L Potassium (3.5-4.9) mmol/L Chloride (98-109) mmol/L Carbon Dioxide (24-29) mmol/L Venous BUN (8-26) mg/dL Creatinine (0.6-1.3) mg/dL Glucose (70-105) mg/dL Lactic Acid 0.6 (0.4-2.0) Ionized Calcium (1.12-1.32) mmol/L Phosphorus Magnesium Urine HCG, Qual (Negative) - Progress Progress: unchanged Counseled pt/family regarding: lab results, diagnosis, need for follow-up (Need to continue taking her medication as prescribed, specifically her Dilantin), rad results - Departure Departure Disposition: Home Clinical Impression: Seizure, Seizure-like activity Condition: Stable Critical Care Time: No Referrals: JORGE GODINEZ MD [Primary Care Provider] - Additional Instructions: Please take your seizure medication as prescribed. Please do not drive, operate heavy machinery, climb heights, or bathe or swim until told to do so by her physician. Plan of Treatment: Nontoxic in appearance. EKG, labs, and CT reviewed. ? whether the patient is truely suffering from grand-seizures from epileptic focus. She had no neurocranial imaging that I could see in her EMR nor is there record of an EEG. HCT wnl with no evidence of ICH or mass and otherwise benign. Laboratory workup without evidence of electrolyte abnormality such as hyponatremia and EKG without evidence of pre-excitation or prolong QT that would point towards arrhythmia as the etiology. I didn't both checking a Dilantin level due to it likely being subtherapeutic given her report of not taking this medication for days. She had no additional seizure activity in the ED and her neuro exam was nonfocal. Mental status was at baseline. She was discharge home to f/u with her PCP and instructed to continue her medication as prescribed. She did not need a refill on her Dilantin when offered. Seizure precautions given before discharge. The patient agreed with and verbally understood the discharge plan. Family at bedside and able to provide her with transportation home.
[2019-02-19 16:18] VITALS: BP 100/57; PULSE 62
--- NOTE | 2019-02-20 08:39 | XRAY ---
Indication: Seizure. Multiple contiguous axial images obtained through the head without contrast. Comparison: None Normal appearing brain parenchyma, ventricles, and bony calvarium. Mild mucosal thickening both inferior maxillary sinuses. Mastoid air cells are clear. Impression: Mild paranasal sinus disease. Remaining CT head without contrast exam is normal. Comment: Preliminary interpretation was made by [facility]. No critical discrepancy. CT DI 61.64
[2019-02-21 17:45] VITALS: O2SAT 99
== END 2019-02-19 16:20 | disposition home or self-care (01) ==
LOC: ED 13:57
DX: G40.909 Epilepsy, unspecified, not intractable, without status epilepticus (principal); Z79.899 Other long term (current) drug therapy; F41.9 Anxiety disorder, unspecified; F32.9 Major depressive disorder, single episode, unspecified; J45.909 Unspecified asthma, uncomplicated
CPT/HCPCS: 36415; 70450; 80047; 83605; 83735; 84100; 84703; 85025; 93005; 99284; A9270-GY

== ENCOUNTER 2019-07-27 21:38 | Emergency (ER) | payer MEDICAID, OTHER ==
--- NOTE | 2019-07-27 21:44 | ERPHSYRPT ---
- History of Present Illness Time Seen by Provider: 07/27/19 21:44 Source: patient Exam Limitations: no limitations Physician History: Is a 33-year-old white female who has a history of seizure disorder as well as rheumatoid arthritis and presents with left elbow pain that she states started as an ache this morning and has worsened throughout the day. She says it is sharp and is difficult to move her elbow. Patient denies any injury to this area. She took a hydrocodone which she has had for pain from another condition. It did not help her pain per her report. Patient has had no fever. Occurred: this morning Method of Injury: unknown Quality: sharpness, stabbing Severity of Pain-Max: moderate Severity of Pain-Current: moderate Extremities Pain Location: elbow: left Modifying Factors: Improves With: movement Associated Symptoms: none (Worsens pain) Allergies/Adverse Reactions: shrimp Allergy (Severe, Verified 07/27/19 22:04) Difficulty Breathing venom-honey bee Allergy (Severe, Verified 07/27/19 22:04) Difficulty Breathing venom-wasp Allergy (Severe, Verified 07/27/19 22:04) Difficulty Breathing menthol [From Icy Hot] Allergy (Intermediate, Verified 07/27/19 22:04) Hives methyl salicylate [From Icy Hot] Allergy (Intermediate, Verified 07/27/19 22:04) Hives nicotine [From Nicoderm CQ] Allergy (Intermediate, Verified 07/27/19 22:04) Rash latex Allergy (Mild, Verified 07/27/19 22:04) Rash Home Medications: Fluoxetine HCl 20 mg [Prozac 20 MG] 40 mg PO DAILY 09/03/18 [History] Phenytoin Sod Extended 100 mg* [Dilantin 100 MG] 100 mg PO BID 07/27/19 [ History] Hx Tetanus, Diphtheria Vaccination/Date Given: Yes Hx Influenza Vaccination/Date Given: No Hx Pneumococcal Vaccination/Date Given: No Travel Risk - International Travel Have you traveled outside of the country in past 3 weeks: No Have you or anyone close to you been diagnosed with or: No Do your reside in a community with a known COVID-19 case?: Yes If Yes where:: [facility] - Coronavirus Screening Has patient experienced Coronavirus symptoms: No - Review of Systems Constitutional: No Symptoms Eyes: No Symptoms Ears, Nose, & Throat: No Symptoms Respiratory: No Symptoms Cardiac: No Symptoms Abdominal/Gastrointestinal: No Symptoms Genitourinary Symptoms: No Symptoms Musculoskeletal: Joint Pain (Left elbow) Skin: No Symptoms Neurological: No Symptoms Psychological: No Symptoms Endocrine: No Symptoms Hematologic/Lymphatic: No Symptoms Immunological/Allergic: No Symptoms All Other Systems: Reviewed and Negative - Past Medical History Pertinent Past Medical History: Yes Neurological History: Migraines, Seizures ENT History: No Pertinent History Cardiac History: No Pertinent History Respiratory History: Asthma Endocrine Medical History: No Pertinent History Musculoskeletal History: No Pertinent History GI Medical History: GERD History: No Pertinent History Psycho-Social History: Anxiety, Depression Female Reproductive Disorders: No Pertinent History - Past Surgical History Past Surgical History: Yes Neuro Surgical History: No Pertinent History Cardiac: No Pertinent History Respiratory: No Pertinent History Gastrointestinal: No Pertinent History Genitourinary: No Pertinent History Musculoskeletal: No Pertinent History Female Surgical History: Dilation & Curettage, Section Other Surgical History: tubal ligation - Social History Smoking Status: Current every day smoker How long have you smoked: 7 yrs Exposure to second hand smoke: Yes Drug Use: none Patient Lives Alone: Yes - Nursing Vital Signs Nursing Vital Signs: Initial Vital Signs Temperature 96.7 F 07/27/19 21:44 Pulse Rate 77 07/27/19 21:44 Respiratory Rate 24 07/27/19 21:44 Blood Pressure 116/70 07/27/19 21:44 O2 Sat by Pulse Oximetry 100 07/27/19 21:44 Pain Scale Pain Intensity 10 - Physical Exam General Appearance: no apparent distress, alert, anxiety Eyes, Ears, Nose, Throat Exam: normal ENT inspection, moist mucous membranes Neck Exam: normal inspection, non-tender, supple, full range of motion Cardiovascular/Respiratory Exam: chest non-tender Abdominal Exam: non-tender Back Exam: normal inspection, normal range of motion, No CVA tenderness, No vertebral tenderness Shoulder Exam: normal inspection, non-tender, no evidence of injury, normal ROM Elbow/Forearm Exam: no evidence of injury, limited ROM, pain, No deformity, No soft tissue tenderness, No swelling Wrist Exam: normal inspection, non-tender, no evidence of injury, normal ROM Hand Exam: normal inspection, non-tender, no evidence of injury, normal ROM Neuro/Tendon Exam: normal sensation, normal motor functions (Decreased at the left elbow joint. Patient can actively extend her elbow but is slow to do so because of the pain), normal tendon functions Mental Status Exam: alert, oriented x 3, cooperative Skin Exam: normal color, warm, dry SpO2 Interpretation: normal O2 Delivery: Room Air - Course Nursing assessment & vital signs reviewed: Yes Ordered Tests: Active Orders 24 hr Category Date Time Status Isolation, Initiate & Maintain Q4H Care 07/27/19 22:04 Active ELBOW (MINIMUM 3 VIEWS) Stat Exams 07/27/19 22:04 Ordered - Progress Progress: unchanged Progress Note: 07/27/19 22:26 X-ray of the left elbow reveals no evidence of any acute fracture or dislocation. There are chronic changes present. Counseled pt/family regarding: diagnosis, need for follow-up, rad results - Departure Departure Disposition: Home Clinical Impression: Left elbow pain Condition: Stable Critical Care Time: No Referrals: JORGE GODINEZ MD [Primary Care Provider] - Additional Instructions: Continue your Tererro medication as prescribed. follow up with your prescribing physician for further management Prescriptions: Carisoprodol 350 mg [Soma 350 mg] 350 mg PO Q8H PRN PRN #10 tablet PRN Reason: Muscle Spasms Prednisone 10 mg [Deltasone 10 mg] 10 mg PO TID #12 tablet
[2019-07-27] MEDS ORDERED: Norflex 60 MG/2 ML IM ONE (22:34)
[2019-07-27] MEDS ORDERED: solu-MEDROL 125 MG IM ONE (22:35)
[2019-07-27] MEDS ORDERED: Norflex 60 MG/2 ML ONE (22:37)
[2019-07-27] MEDS ORDERED: solu-MEDROL 125 MG ONE (22:37)
[2019-07-27 23:05] VITALS: BP 113/53; PULSE 78; O2SAT 99
--- NOTE | 2019-07-28 08:16 | XRAY ---
Indication: Pain. History of remote elbow fracture 16 years ago. Comparison: None 3 view left elbow demonstrates old radial head fracture with mild radial capitellum degenerative changes and tiny coronoid spur. No other bony, articular, or soft tissue abnormalities.
== END 2019-07-27 23:00 | disposition home or self-care (01) ==
LOC: ED 21:38
DX: M25.522 Pain in left elbow (principal); G40.909 Epilepsy, unspecified, not intractable, without status epilepticus; M06.9 Rheumatoid arthritis, unspecified; J45.909 Unspecified asthma, uncomplicated; Z72.0 Tobacco use
CPT/HCPCS: 73080; 96372; 99284; J2360; J2930

== ENCOUNTER 2019-07-31 17:26 | Emergency (ER) | payer MEDICAID ==
[2019-07-31] MEDS ORDERED: ZOFRAN ODT 4 MG PO ONE (18:00)
[2019-07-31] MEDS ORDERED: TYLENOL 325 MG PO ONE (18:02)
[2019-07-31] MEDS ORDERED: TYLENOL 325 MG ONE (18:12)
[2019-07-31] MEDS ORDERED: ZOFRAN ODT 4 MG ONE (18:12)
[2019-07-31 18:15] LABS: Appearance CLEAR (CLEAR); Bilirubin NEGATIVE (NEGATIVE); Blood NEGATIVE Ery/ul (0-5); Glucose NEGATIVE (NEGATIVE); Ketones NEGATIVE (NEGATIVE); Leukocyte Esterase NEGATIVE (NEGATIVE); Nitrite NEGATIVE (NEGATIVE); Protein,Urine Dip NEGATIVE (Negative); Specific Gravity 1.004 (1.005-1.025); Urobilinogen NEGATIVE mg/dL (0-1)
--- NOTE | 2019-07-31 18:17 | ERPHSYRPT ---
- History of Present Illness Time Seen by Provider: 07/31/19 18:00 Source: patient Exam Limitations: no limitations Patient Subjective Stated Complaint: pt her for a rash to right buttock . Triage Nursing Assessment: pt alert, resp easy ,skin w.d.p,red raised rash to buttock Physician History: Patient is a 33yo F who presents to ED with c/o a painful rash on her right buttock that was observed today. Pain is described as a stinging sensation. No radiation. Patient has not taken analgesics. NO trauma or fevers. Symptoms are mild to moderate in intensity. Pain makes her feel somewhat nauseous. She voices no other c/o at this time. Timing/Duration: today Quality: burning Severity: moderate Location: other (Right buttock) Possible Causes: no cause identified Modifying Factors: Improves With: other (none) Associated Symptoms: other (nausea and chills), No headache Allergies/Adverse Reactions: shrimp Allergy (Severe, Verified 07/31/19 18:06) Difficulty Breathing venom-honey bee Allergy (Severe, Verified 07/31/19 18:06) Difficulty Breathing venom-wasp Allergy (Severe, Verified 07/31/19 18:06) Difficulty Breathing menthol [From Icy Hot] Allergy (Intermediate, Verified 07/31/19 18:06) Hives methyl salicylate [From Icy Hot] Allergy (Intermediate, Verified 07/31/19 18:06) Hives nicotine [From Nicoderm CQ] Allergy (Intermediate, Verified 07/31/19 18:06) Rash latex Allergy (Mild, Verified 07/31/19 18:06) Rash Home Medications: Fluoxetine HCl 20 mg [Prozac 20 MG] 40 mg PO DAILY 09/03/18 [History] Phenytoin Sod Extended 100 mg* [Dilantin 100 MG] 100 mg PO BID 07/27/19 [ History] Hx Tetanus, Diphtheria Vaccination/Date Given: Yes Hx Influenza Vaccination/Date Given: Yes Hx Pneumococcal Vaccination/Date Given: No Immunizations Up to Date: Yes Travel Risk - International Travel Have you traveled outside of the country in past 3 weeks: No Have you or anyone close to you been diagnosed with or: No Do your reside in a community with a known COVID-19 case?: Yes If Yes where:: [place] - Coronavirus Screening Has patient experienced Coronavirus symptoms: No - Review of Systems Constitutional: No Symptoms, No Fever, No Chills Eyes: No Symptoms Ears, Nose, & Throat: No Symptoms Respiratory: No Symptoms, No Cough, No Dyspnea Cardiac: No Symptoms, No Chest Pain, No Edema, No Syncope Abdominal/Gastrointestinal: No Symptoms, No Abdominal Pain, No Nausea, No Vomiting, No Diarrhea Genitourinary Symptoms: No Symptoms, No Dysuria Musculoskeletal: No Symptoms, No Back Pain, No Neck Pain Skin: No Symptoms, Rash Neurological: No Symptoms, No Dizziness, No Focal Weakness, No Sensory Changes Psychological: No Symptoms Endocrine: No Symptoms Hematologic/Lymphatic: No Symptoms Immunological/Allergic: No Symptoms All Other Systems: Reviewed and Negative - Past Medical History Pertinent Past Medical History: Yes Neurological History: Migraines, Seizures ENT History: No Pertinent History Cardiac History: No Pertinent History Respiratory History: Asthma Endocrine Medical History: No Pertinent History Musculoskeletal History: No Pertinent History GI Medical History: GERD History: No Pertinent History Psycho-Social History: Anxiety, Depression Female Reproductive Disorders: No Pertinent History - Past Surgical History Past Surgical History: Yes Neuro Surgical History: No Pertinent History Cardiac: No Pertinent History Respiratory: No Pertinent History Gastrointestinal: No Pertinent History Genitourinary: No Pertinent History Musculoskeletal: No Pertinent History Female Surgical History: Dilation & Curettage, Section Other Surgical History: tubal ligation - Social History Smoking Status: Current every day smoker How long have you smoked: 1/4 Exposure to second hand smoke: Yes Drug Use: none Patient Lives Alone: No - Female History Hx Last Menstrual Period: 2 weeks ago Hx Now: No - Nursing Vital Signs Nursing Vital Signs: Initial Vital Signs Temperature 97.8 F 07/31/19 17:56 Pulse Rate 66 07/31/19 17:56 Respiratory Rate 16 07/31/19 17:56 Blood Pressure 110/60 07/31/19 17:56 O2 Sat by Pulse Oximetry 94 L 07/31/19 17:56 Pain Scale Pain Intensity 4 - Physical Exam General Appearance: no apparent distress, alert Eye Exam: PERRL/EOMI, eyes nml inspection Ears, Nose, Throat Exam: normal ENT inspection, pharynx normal, moist mucous membranes Neck Exam: normal inspection, non-tender, supple, full range of motion Respiratory Exam: normal breath sounds, lungs clear, No respiratory distress Cardiovascular Exam: regular rate/rhythm, normal heart sounds Gastrointestinal/Abdomen Exam: soft, mass, No tenderness Pelvic Exam: not done Rectal Exam: deferred Back Exam: normal inspection, normal range of motion, No CVA tenderness, No vertebral tenderness Extremity Exam: normal inspection, normal range of motion Neurologic Exam: alert, oriented x 3, cooperative, normal mood/affect, sensation nml, No motor deficits Skin Exam: normal color, warm, dry, other (pustular rash on rt. buttock. No superimposed cellulitis. ) SpO2 Interpretation: normal SpO2: 95 O2 Delivery: Room Air - Course Nursing assessment & vital signs reviewed: Yes Ordered Tests: Active Orders 24 hr Category Date Time Status HCG,QUALITATIVE URINE Stat Lab 07/31/19 18:07 Ordered UA W/RFX UR CULTURE Stat Lab 07/31/19 18:07 Ordered Medication Summary Discontinued Medications Generic Name Dose Route Start Last Admin Trade Name Freq PRN Reason Stop Dose Admin Acetaminophen 975 mg 07/31/19 18:02 Tylenol 325 Mg PO 07/31/19 18:03 STAT ONE Ondansetron HCl 4 mg 07/31/19 18:00 Zofran Odt 4 Mg PO 07/31/19 18:01 STAT ONE - Progress Progress: unchanged Progress Note: Patient appears to have herpes zoster lesion. Acyclovir prescription transmitted to pharmacy. Patient to taken OTC NSAIDS for pain control. UA negative. U preg negative. 07/31/19 18:22 Counseled pt/family regarding: diagnosis, need for follow-up - Departure Departure Disposition: Home Clinical Impression: Shingles rash Condition: Stable Critical Care Time: No Referrals: JORGE GODINEZ MD [Primary Care Provider] - Additional Instructions: Discharge/Care Plan DAVIDE MOSQUERA was seen on 07/31/19 in the Emergency Room. The patient was counseled regarding Diagnosis,Lab results, Imaging studies, need for follow up and when to return to the Emergency Room. Prescriptions given: Discharge Note I have spoken with the patient and/or caregivers. I have explained the patient' s condition, diagnosis and treatment plan based on the information available to me at this time. I have answered the patient's and/or caregiver's questions and addressed any concerns. The patient and/or caregivers have as good understanding of the patient's diagnosis, condition and treatment plan as can be expected at this point. The vital signs have been stable. The patient's condition is stable and appropriate for discharge from the emergency department. The patient will pursue further outpatient evaluation with the primary care physician or other designated or consulting physician as outlined in the discharge instructions. The patient and/or caregivers are agreeable to this plan of care and follow-up instructions have been explained in detail. The patient and/or caregivers have received these instruction. The patient/and or caregivers are aware that any significant change in condition or worsening of symptoms should prompt an immediate return to this or the closest emergency department or call 911. Prescriptions: Acyclovir 800 mg [Zovirax 800 mg] 800 mg PO 5XD 7 Days #35 tablet
[2019-07-31 18:20] VITALS: BP 98/57
[2019-07-31 18:47] VITALS: PULSE 78; O2SAT 97
== END 2019-07-31 18:50 | disposition home or self-care (01) ==
LOC: ED 17:26
DX: B02.9 Zoster without complications (principal); R21 Rash and other nonspecific skin eruption; F41.9 Anxiety disorder, unspecified
CPT/HCPCS: 81001; 84703; 99283; Q0162; A9270-GY

== ENCOUNTER 2019-08-05 18:56 | Emergency (ER) | payer MEDICAID ==
[2019-08-05] MEDS ORDERED: Sodium Chloride 0.9% 1000 ML 1,000 ML IV STA (19:25)
[2019-08-05] MEDS ORDERED: Zofran 4 MG/2 ML VIAL IV ONE (19:25)
[2019-08-05] MEDS ORDERED: Zofran 4 MG/2 ML VIAL ONE (19:35)
[2019-08-05] MEDS ORDERED: Sodium Chloride 0.9% 1000 ML 1,000 ML ONE (19:35)
--- NOTE | 2019-08-05 19:35 | ERPHSYRPT ---
- History of Present Illness Time Seen by Provider: 08/05/19 19:33 Historian: patient Exam Limitations: no limitations Patient Subjective Stated Complaint: pt states she has been having nausea and vomiting for approx 1 week. states she was outside mowing today and had increased shortness of breath while mowing. states she has chronic shortness of breath d/t asthma. Triage Nursing Assessment: pt alert and oriented, answers questions approp. pt ambulatory with steady gait noted. skin warm an dry. some sunburn noted to bilat arms, neck and chest. pt states from being outside mowing today. respirations nonlabored with lungs cta. abd soft and nontender to light palpation with bowel sounds noted x4. Physician History: This is a 33-year-old white female who has history of seizure disorder on Dilantin. She presents with cough and shortness of breath with exertion today. Patient has already been tested for the COVID-19 virus lab test. It was performed a few days ago. It has not yet returned from the lab. We checked. Patient has a history of anxiety and depression. She also has a history of migraines. Patient is a smoker of cigarettes daily and has smoked for 7 years. Patient states she always has a cough and there is always some shortness of breath present. Patient is here because she was having not so much respiratory complaints as vomiting and diarrhea. The diarrhea has improved the vomiting has been persistent for a few days. She denies urinary symptoms. Timing/Duration: day(s) (3 to 4 days) Severity of Pain-Max: none Severity of Pain-Current: none Associated Symptoms: diarrhea, nausea, vomiting Previous symptoms: no prior history Allergies/Adverse Reactions: shrimp Allergy (Severe, Verified 08/05/19 19:31) Difficulty Breathing venom-honey bee Allergy (Severe, Verified 08/05/19 19:31) Difficulty Breathing venom-wasp Allergy (Severe, Verified 08/05/19 19:31) Difficulty Breathing menthol [From Icy Hot] Allergy (Intermediate, Verified 08/05/19 19:31) Hives methyl salicylate [From Icy Hot] Allergy (Intermediate, Verified 08/05/19 19:31) Hives nicotine [From Nicoderm CQ] Allergy (Intermediate, Verified 08/05/19 19:31) Rash latex Allergy (Mild, Verified 08/05/19 19:31) Rash Home Medications: Fluoxetine HCl 20 mg [Prozac 20 MG] 40 mg PO DAILY 09/03/18 [History] Phenytoin Sod Extended 100 mg* [Dilantin 100 MG] 200 mg PO BID 07/27/19 [ History] Hx Tetanus, Diphtheria Vaccination/Date Given: Yes Hx Influenza Vaccination/Date Given: Yes Hx Pneumococcal Vaccination/Date Given: No Immunizations Up to Date: Yes Travel Risk - International Travel Have you traveled outside of the country in past 3 weeks: No Have you or anyone close to you been diagnosed with or: No Do your reside in a community with a known COVID-19 case?: Yes If Yes where:: [facility] - Coronavirus Screening Has patient experienced Coronavirus symptoms: Yes Symptoms experienced: respiratory symptoms (i.e.Cought,shortness of breath) Date of respiratory symptoms onset:: 08/05/19 - Review of Systems Constitutional: No Symptoms Eyes: No Symptoms Ears, Nose, & Throat: No Symptoms Respiratory: Cough (Mild chronic), Dyspnea (Mild chronic) Cardiac: No Symptoms Abdominal/Gastrointestinal: Nausea, Vomiting, Diarrhea Genitourinary Symptoms: No Symptoms Musculoskeletal: No Symptoms Skin: No Symptoms Neurological: No Symptoms Psychological: No Symptoms Endocrine: No Symptoms Hematologic/Lymphatic: No Symptoms Immunological/Allergic: No Symptoms All Other Systems: Reviewed and Negative - Past Medical History Pertinent Past Medical History: Yes Neurological History: Migraines, Seizures ENT History: No Pertinent History Cardiac History: No Pertinent History Respiratory History: Asthma Endocrine Medical History: No Pertinent History Musculoskeletal History: No Pertinent History GI Medical History: GERD History: No Pertinent History Psycho-Social History: Anxiety, Depression Female Reproductive Disorders: No Pertinent History - Past Surgical History Past Surgical History: Yes Neuro Surgical History: No Pertinent History Cardiac: No Pertinent History Respiratory: No Pertinent History Gastrointestinal: No Pertinent History Genitourinary: No Pertinent History Musculoskeletal: No Pertinent History Female Surgical History: Dilation & Curettage, Section Other Surgical History: tubal ligation - Social History Smoking Status: Current every day smoker How long have you smoked: 16yrs Exposure to second hand smoke: Yes Drug Use: none Patient Lives Alone: No - Female History Hx Last Menstrual Period: 2 weeks Hx Now: No - Nursing Vital Signs Nursing Vital Signs: Initial Vital Signs Temperature 98.3 F 08/05/19 19:18 Pulse Rate 100 H 08/05/19 19:18 Respiratory Rate 16 08/05/19 19:18 Blood Pressure 111/74 08/05/19 19:18 O2 Sat by Pulse Oximetry 98 08/05/19 19:18 Pain Scale Pain Intensity 4 - Physical Exam General Appearance: mild distress, alert, anxiety Eye Exam: PERRL/EOMI, eyes nml inspection Ears, Nose, Throat Exam: normal ENT inspection, moist mucous membranes Neck Exam: normal inspection, non-tender, supple, full range of motion Respiratory Exam: normal breath sounds, lungs clear, airway intact, No chest tenderness, No respiratory distress Cardiovascular Exam: regular rate/rhythm, normal heart sounds, normal peripheral pulses Gastrointestinal/Abdomen Exam: soft, normal bowel sounds, No tenderness Pelvic Exam: not done Rectal Exam: not done Back Exam: normal inspection, normal range of motion, No CVA tenderness, No vertebral tenderness Extremity Exam: normal inspection, normal range of motion, pelvis stable Neurologic Exam: alert, oriented x 3, cooperative, epic [facility] II-XII nml as tested, normal mood/affect, nml cerebellar function, nml station & gait Skin Exam: normal color, warm, dry Lymphatic Exam: No adenopathy SpO2 Interpretation: normal SpO2: 98 O2 Delivery: Room Air - Course Nursing assessment & vital signs reviewed: Yes Ordered Tests: Active Orders 24 hr Category Date Time Status IV Insertion STAT Care 08/05/19 19:25 Active Isolation, Initiate & Maintain Q4H Care 08/05/19 19:30 Active CHEST 1 VIEW (PORTABLE) Stat Exams 08/05/19 19:35 Taken AMYLASE Stat Lab 08/05/19 19:40 Completed CBC W DIFF Stat Lab 08/05/19 19:40 Completed CMP Stat Lab 08/05/19 19:40 Completed LIPASE Stat Lab 08/05/19 19:40 Completed Lactic Acid Stat Lab 08/05/19 20:12 Completed Manual Differential NC Stat Lab 08/05/19 19:40 Completed UA W/RFX UR CULTURE Stat Lab 08/05/19 19:50 Completed Medication Summary Discontinued Medications Generic Name Dose Route Start Last Admin Trade Name Freq PRN Reason Stop Dose Admin Sodium Chloride 1,000 mls @ 999 mls/hr 08/05/19 19:25 08/05/19 20:29 Sodium Chloride 0.9% 1000 Ml IV 08/05/19 20:25 Infused .Q1H1M STA Infusion Sodium Chloride Confirm 08/05/19 19:35 Sodium Chloride 0.9% 1000 Ml Administered 08/05/19 19:36 Dose 1,000 mls @ ud .ROUTE .STK-MED ONE Ondansetron HCl 4 mg 08/05/19 19:25 08/05/19 19:36 Zofran 4 Mg/2 Ml Vial IV 08/05/19 19:26 4 mg STAT ONE Administration Ondansetron HCl Confirm 08/05/19 19:35 Zofran 4 Mg/2 Ml Vial Administered 08/05/19 19:36 Dose 4 mg .ROUTE .STK-MED ONE Lab/Rad Data: Laboratory Result Diagrams 08/05/19 19:40 08/05/19 19:40 Laboratory Results 08/05/19 08/05/19 08/05/19 Range/Units 20:12 19:50 19:42 WBC (4.0-10.5) K/mm3 RBC (4.1-5.4) M/mm3 Hgb (12.0-16.0) gm/dl Hct (35-47) % MCV (78-100) fl MCH (26-32) pg MCHC (32-36) g/dl RDW (11.5-14.0) % Plt Count (150-450) K/mm3 MPV (7.5-11.0) fl Sodium (137-145) mmol/L Potassium (3.5-5.1) mmol/L Chloride (98-107) mmol/L Carbon Dioxide (22-30) mmol/L Anion Gap (5-15) MEQ/L BUN (7-17) mg/dL Creatinine (0.52-1.04) mg/dL Estimated GFR ML/MIN Glucose (74-106) mg/dL Lactic Acid 0.9 (0.4-2.0) Calcium (8.4-10.2) mg/dL Total Bilirubin (0.2-1.3) mg/dL AST (14-36) U/L ALT (0-35) U/L Alkaline Phosphatase (38-126) U/L Serum Total Protein (6.3-8.2) g/dL Albumin (3.5-5.0) g/dL Amylase (30-110) U/L Lipase (23-300) U/L Urine Color YELLOW (YELLOW) Urine Appearance CLOUDY (CLEAR) Urine pH 6.0 (5-6) Ur Specific [place] 1.014 (1.005-1.025) Urine Protein NEGATIVE (Negative) Urine Ketones NEGATIVE (NEGATIVE) Urine Blood NEGATIVE (0-5) Horacio/ul Urine Nitrite NEGATIVE (NEGATIVE) Urine Bilirubin NEGATIVE (NEGATIVE) Urine Urobilinogen NEGATIVE (0-1) mg/dL Ur Leukocyte Esterase TRACE (NEGATIVE) Urine WBC (Auto) 3-5 (0-5) /HPF Urine RBC (Auto) 0-2 (0-2) /HPF U Epithel Cells (Auto) MODERATE (FEW) /HPF Urine Bacteria (Auto) FEW (NEGATIVE) /HPF Urine Mucus (Auto) SLIGHT (NEGATIVE) /HPF Urine Culture Reflexed NO (NO) Urine Glucose NEGATIVE (NEGATIVE) mg/dL Phenytoin < 3.0 L (10-20) ug/mL Influenza Type A Ag (NEGATIVE) Influenza Type B Ag (NEGATIVE) RSV (PCR) (Negative) 08/05/19 08/05/19 08/05/19 Range/Units 19:40 19:40 19:40 WBC 8.9 (4.0-10.5) K/mm3 RBC 4.28 (4.1-5.4) M/mm3 Hgb 13.6 (12.0-16.0) gm/dl Hct 40.2 (35-47) % MCV 93.9 (78-100) fl MCH 31.8 (26-32) pg MCHC 33.8 (32-36) g/dl RDW 13.5 (11.5-14.0) % Plt Count 212 (150-450) K/mm3 MPV 10.9 (7.5-11.0) fl Sodium 139 (137-145) mmol/L Potassium 4.1 (3.5-5.1) mmol/L Chloride 107 (98-107) mmol/L Carbon Dioxide 24 (22-30) mmol/L Anion Gap 12.4 (5-15) MEQ/L BUN 12 (7-17) mg/dL Creatinine 1.02 (0.52-1.04) mg/dL Estimated GFR > 60.0 ML/MIN Glucose 99 (74-106) mg/dL Lactic Acid (0.4-2.0) Calcium 9.9 (8.4-10.2) mg/dL Total Bilirubin 0.30 (0.2-1.3) mg/dL AST 17 (14-36) U/L ALT 19 (0-35) U/L Alkaline Phosphatase 55 (38-126) U/L Serum Total Protein 7.4 (6.3-8.2) g/dL Albumin 4.2 (3.5-5.0) g/dL Amylase 74 (30-110) U/L Lipase 159 (23-300) U/L Urine Color (YELLOW) Urine Appearance (CLEAR) Urine pH (5-6) Ur Specific [place] (1.005-1.025) Urine Protein (Negative) Urine Ketones (NEGATIVE) Urine Blood (0-5) Horacio/ul Urine Nitrite (NEGATIVE) Urine Bilirubin (NEGATIVE) Urine Urobilinogen (0-1) mg/dL Ur Leukocyte Esterase (NEGATIVE) Urine WBC (Auto) (0-5) /HPF Urine RBC (Auto) (0-2) /HPF U Epithel Cells (Auto) (FEW) /HPF Urine Bacteria (Auto) (NEGATIVE) /HPF Urine Mucus (Auto) (NEGATIVE) /HPF Urine Culture Reflexed (NO) Urine Glucose (NEGATIVE) mg/dL Phenytoin (10-20) ug/mL Influenza Type A Ag NEGATIVE (NEGATIVE) Influenza Type B Ag NEGATIVE (NEGATIVE) RSV (PCR) NEGATIVE (Negative) - Progress Progress: unchanged Progress Note: 08/05/19 21:06 Chest x-ray shows no acute process Counseled pt/family regarding: lab results, diagnosis, need for follow-up, rad results - Departure Departure Disposition: Home Clinical Impression: Vomiting and diarrhea Condition: Stable Critical Care Time: No Referrals: JORGE GODINEZ MD [Primary Care Provider] - Additional Instructions: Plenty of fluids. Follow-up with your primary care doctor for persistent symptoms. Fill your prescription and take the prescription as prescribed Prescriptions: Ondansetron ODT 4 MG [Zofran Odt 4 mg] 4 mg PO Q6H PRN PRN #10 tab.rapdis PRN Reason: Vomiting
[2019-08-05 19:53] LABS: Hematocrit 40.2 % (35-47); Hemoglobin 13.6 gm/dl (12.0-16.0); Mean Cell Volume 93.9 fl (78-100); Mean Corpuscular Hemoglobin 31.8 pg (26-32); Mean Corpuscular Hgb Concent. 33.8 g/dl (32-36); Mean Platelet Volume 10.9 fl (7.5-11.0); Platelet Count 212 K/mm3 (150-450); Red Blood Count 4.28 M/mm3 (4.1-5.4); Red Cell Distribution Width 13.5 % (11.5-14.0); White Blood Count 8.9 K/mm3 (4.0-10.5)
[2019-08-05 19:55] LABS: ALBUMIN 4.2 g/dL (3.5-5.0); ALKALINE PHOSPHATASE 55 U/L (38-126); AMYLASE 74 U/L (30-110); ANION GAP 12.4 MEQ/L (5-15); BLOOD UREA NITROGEN 12 mg/dL (7-17); CHLORIDE 107 mmol/L (98-107); Calcium 9.9 mg/dL (8.4-10.2); Carbon Dioxide 24 mmol/L (22-30); Creatinine 1 1.02 mg/dL (0.52-1.04); Glucose 99 mg/dL (74-106); LIPASE 159 U/L (23-300); Potassium 4.1 mmol/L (3.5-5.1); SGOT/AST 17 U/L (14-36); SGPT/ALT 19 U/L (0-35); SODIUM 139 mmol/L (137-145); Total Protein 7.4 g/dL (6.3-8.2)
[2019-08-05 19:59] LABS: Appearance CLOUDY (CLEAR); Bacteria FEW /HPF (NEGATIVE); Bilirubin NEGATIVE (NEGATIVE); Blood NEGATIVE Ery/ul (0-5); Epithelial Cells MODERATE /HPF (FEW); Glucose NEGATIVE (NEGATIVE); Ketones NEGATIVE (NEGATIVE); Leukocyte Esterase TRACE (NEGATIVE); Mucus SLIGHT /HPF (NEGATIVE); Nitrite NEGATIVE (NEGATIVE); Protein,Urine Dip NEGATIVE (Negative); RBC 0-2 /HPF (0-2); Specific Gravity 1.014 (1.005-1.025); Urobilinogen NEGATIVE mg/dL (0-1)
[2019-08-05 20:15] LABS: INFLUENZA A NEGATIVE (NEGATIVE); INFLUENZA B NEGATIVE (NEGATIVE); RESPIRATORY SYNCTIAL VIRUS NEGATIVE (Negative)
[2019-08-05 21:14] VITALS: BP 108/62; PULSE 61; O2SAT 100
[2019-08-05 22:15] LABS: ATYPICAL LYMPHS 1 %; Eosinophil 4 % (0.00-3.0); Lymphocytes 27 % (24-44); Monocyte 5 % (0.0-12.0); Neutrophils 63 % (36.0-66.0); Platelet Estimate NORMAL (NORMAL); Total Cells Counted 100
--- NOTE | 2019-08-06 07:48 | XRAY ---
Indication: Cough and shortness of breath. Comparison: None Portable chest demonstrates normal heart, lungs, and bony thorax.
== END 2019-08-05 21:17 | disposition home or self-care (01) ==
LOC: ED 18:56
DX: R11.10 Vomiting, unspecified (principal); R19.7 Diarrhea, unspecified; K21.9 Gastro-esophageal reflux disease without esophagitis; F41.9 Anxiety disorder, unspecified; F32.9 Major depressive disorder, single episode, unspecified; G40.909 Epilepsy, unspecified, not intractable, without status epilepticus; J45.909 Unspecified asthma, uncomplicated
CPT/HCPCS: 36000; 36415; 71045; 80053; 80185; 81001; 82150; 83605; 83690; 85025; 87631; 96360; 96374; 99284; J2405

== ENCOUNTER 2019-11-02 10:45 | Emergency (ER) | payer MEDICAID ==
--- NOTE | 2019-11-02 10:57 | ERPHSYRPT ---
- History of Present Illness Time Seen by Provider: 11/02/19 10:55 Historian: patient Exam Limitations: no limitations Physician History: Patient is a 34-year-old female with history of smoking presents to our ED with complaints of intermittent left-sided chest pain that started yesterday at approximately 4 PM. Patient arrived via EMS. She was given aspirin and nitro glycerin. Pain described as an ache that is localized. No radiation. No associated nausea or vomiting. No diaphoresis. No syncope. 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 Patient states she may have injured herself at work but is not sure. Patient also states that she has a significant family history of cardiovascular disease. Patient states she is under significant amount of stress. Patient states that she is in school, she is working full-time and her mother was diagnosed with stage III Alzheimer's per patient. She states that the stress is overwhelming. No associated fever. No trauma. Patient has a history of epilepsy. She is on Dilantin. Patient is otherwise healthy. She voices no other complaints at this time. Timing/Duration: today Activities at Onset: none Quality: aching Location: other (Test) Chest Pain Radiation: no radiation Severity of Pain-Max: moderate Severity of Pain-Current: mild Modifying Factors: Improves With: nothing Associated Symptoms: denies symptoms, No nausea, No heartburn, No abdominal pain, No shortness of breath, No cough, No hurts to breathe, No syncope, No headache, No dizziness, No edema, No back pain Nitro Today/Relief: 0.4 mg x 2 Aspirin Treatment Today: 325 mg x 1 Allergies/Adverse Reactions: shrimp Allergy (Severe, Verified 11/02/19 10:58) Difficulty Breathing venom-honey bee Allergy (Severe, Verified 11/02/19 10:58) Difficulty Breathing venom-wasp Allergy (Severe, Verified 11/02/19 10:58) Difficulty Breathing menthol [From Icy Hot] Allergy (Intermediate, Verified 11/02/19 10:58) Hives methyl salicylate [From Icy Hot] Allergy (Intermediate, Verified 11/02/19 10:58) Hives nicotine [From Nicoderm CQ] Allergy (Intermediate, Verified 11/02/19 10:58) Rash latex Allergy (Mild, Verified 11/02/19 10:58) Rash Home Medications: Fluoxetine HCl 20 mg [Prozac 20 MG] 40 mg PO DAILY 09/03/18 [History] Phenytoin Sod Extended 100 mg* [Dilantin 100 MG] 200 mg PO BID 07/27/19 [History] Hx Tetanus, Diphtheria Vaccination/Date Given: Yes Hx Influenza Vaccination/Date Given: Yes Hx Pneumococcal Vaccination/Date Given: No - Review of Systems Constitutional: No Symptoms, No Fever, No Chills Eyes: No Symptoms Ears, Nose, & Throat: No Symptoms Respiratory: No Symptoms, No Cough, No Dyspnea Cardiac: No Symptoms, No Chest Pain, No Edema, No Syncope Abdominal/Gastrointestinal: No Symptoms, No Abdominal Pain, No Nausea, No Vomiting, No Diarrhea Genitourinary Symptoms: No Symptoms, No Dysuria Musculoskeletal: No Symptoms, No Back Pain, No Neck Pain Skin: No Symptoms, No Rash Neurological: No Symptoms, No Dizziness, No Focal Weakness, No Sensory Changes Psychological: No Symptoms Endocrine: No Symptoms Hematologic/Lymphatic: No Symptoms Immunological/Allergic: No Symptoms All Other Systems: Reviewed and Negative - Past Medical History Pertinent Past Medical History: Yes Neurological History: Migraines, Seizures ENT History: No Pertinent History Cardiac History: No Pertinent History Respiratory History: Asthma Endocrine Medical History: No Pertinent History Musculoskeletal History: No Pertinent History GI Medical History: GERD History: No Pertinent History Psycho-Social History: Anxiety, Depression Female Reproductive Disorders: No Pertinent History - Past Surgical History Past Surgical History: Yes Neuro Surgical History: No Pertinent History Cardiac: No Pertinent History Respiratory: No Pertinent History Gastrointestinal: No Pertinent History Genitourinary: No Pertinent History Musculoskeletal: No Pertinent History Female Surgical History: Dilation & Curettage, Section Other Surgical History: tubal ligation - Social History Smoking Status: Current every day smoker How long have you smoked: 16yrs Exposure to second hand smoke: Yes Drug Use: none Patient Lives Alone: No - Female History Hx Now: No - Nursing Vital Signs Nursing Vital Signs: Initial Vital Signs Temperature 97.7 F 11/02/19 10:49 Pulse Rate 53 L 11/02/19 10:49 Respiratory Rate 18 11/02/19 10:49 Blood Pressure 102/59 11/02/19 10:49 O2 Sat by Pulse Oximetry 100 11/02/19 10:49 Pain Scale Pain Intensity 7 - Physical Exam General Appearance: no apparent distress, alert Eye Exam: PERRL/EOMI, eyes nml inspection Ears, Nose, Throat Exam: normal ENT inspection, moist mucous membranes Neck Exam: normal inspection, non-tender, supple, full range of motion Respiratory Exam: normal breath sounds, lungs clear, No respiratory distress Cardiovascular Exam: regular rate/rhythm, normal heart sounds Gastrointestinal/Abdomen Exam: soft, No tenderness, No mass Back Exam: normal inspection, No CVA tenderness, No vertebral tenderness Extremity Exam: normal inspection, normal range of motion Neurologic Exam: alert, oriented x 3, cooperative, normal mood/affect, sensation nml, No motor deficits Skin Exam: normal color, warm, dry SpO2 Interpretation: normal SpO2: 100 O2 Delivery: Room Air - Course Nursing assessment & vital signs reviewed: Yes EKG Interpreted by Me: RATE (54), Sinus Rhythm, NORMAL AXIS, NORMAL INTERVALS - Radiology Exams Chest X-ray Interpretation: Discussed w/ radiologist, Teleradiologist Report (Heart lungs and bony thorax.) Ordered Tests: Active Orders 24 hr Category Date Time Status Traveling Storekeeper STAT Care 11/02/19 10:52 Active EKG-ER Only STAT Care 11/02/19 10:52 Active IV Insertion STAT Care 11/02/19 10:52 Active Pulse Oximetry (ED) STAT Care 11/02/19 10:52 Active House Regular Diet Diet 11/02/19 Dinner Active CHEST 1 VIEW (PORTABLE) Stat Exams 11/02/19 10:52 Completed CBC W DIFF Stat Lab 11/02/19 11:07 Completed CMP Stat Lab 11/02/19 11:07 Completed D-DIMER QUANTITATIVE Stat Lab 11/02/19 11:07 Completed TROPONIN Q3H Lab 11/02/19 11:07 Completed TROPONIN Q3H Lab 11/02/19 13:41 Completed TROPONIN Q3H Lab 11/02/19 17:00 Ordered TROPONIN Q3H Lab 11/02/19 20:00 Ordered TROPONIN Q3H Lab 11/02/19 23:00 Ordered Urine Triage Profile Stat Lab 11/02/19 12:00 Completed Lab/Rad Data: Laboratory Result Diagrams 11/02/19 11:07 11/02/19 11:07 Laboratory Results 11/02/19 11/02/19 11/02/19 Range/Units 13:41 12:00 11:07 WBC (4.0-10.5) K/mm3 RBC (4.1-5.4) M/mm3 Hgb (12.0-16.0) gm/dl Hct (35-47) % MCV (78-100) fl MCH (26-32) pg MCHC (32-36) g/dl RDW (11.5-14.0) % Plt Count (150-450) K/mm3 MPV (7.5-11.0) fl Gran % (36.0-66.0) % Eos # (Auto) (0-0.5) Absolute Lymphs (auto) (1.0-4.6) Absolute Monos (auto) (0.0-1.3) Lymphocytes % (24.0-44.0) % Monocytes % (0.0-12.0) % Eosinophils % (0.00-5.0) % Basophils % (0.0-0.4) % Absolute Granulocytes (1.4-6.9) Basophils # (0-0.4) D-Dimer (215-500) ng/mL Sodium (137-145) mmol/L Potassium (3.5-5.1) mmol/L Chloride (98-107) mmol/L Carbon Dioxide (22-30) mmol/L Anion Gap (5-15) MEQ/L BUN (7-17) mg/dL Creatinine (0.52-1.04) mg/dL Estimated GFR ML/MIN Glucose (74-106) mg/dL Calcium (8.4-10.2) mg/dL Total Bilirubin (0.2-1.3) mg/dL AST (14-36) U/L ALT (0-35) U/L Alkaline Phosphatase (38-126) U/L Troponin I < 0.012 (0.000-0.034) ng/mL Serum Total Protein (6.3-8.2) g/dL Albumin (3.5-5.0) g/dL Urine Opiates Level NEGATIVE (NEGATIVE) Ur Methadone NEGATIVE (NEGATIVE) Urine Barbiturates NEGATIVE (NEGATIVE) Phenytoin < 3.0 L (10-20) ug/mL Ur Phencyclidine (PCP) NEGATIVE (NEGATIVE) Urine Amphetamine NEGATIVE (NEGATIVE) U Benzodiazepine Level NEGATIVE (NEGATIVE) Urine Cocaine NEGATIVE (NEGATIVE) Urine Marijuana (THC) NEGATIVE (NEGATIVE) 11/02/19 11/02/19 11/02/19 Range/Units 11:07 11:07 11:07 WBC (4.0-10.5) K/mm3 RBC (4.1-5.4) M/mm3 Hgb (12.0-16.0) gm/dl Hct (35-47) % MCV (78-100) fl MCH (26-32) pg MCHC (32-36) g/dl RDW (11.5-14.0) % Plt Count (150-450) K/mm3 MPV (7.5-11.0) fl Gran % (36.0-66.0) % Eos # (Auto) (0-0.5) Absolute Lymphs (auto) (1.0-4.6) Absolute Monos (auto) (0.0-1.3) Lymphocytes % (24.0-44.0) % Monocytes % (0.0-12.0) % Eosinophils % (0.00-5.0) % Basophils % (0.0-0.4) % Absolute Granulocytes (1.4-6.9) Basophils # (0-0.4) D-Dimer 342 (215-500) ng/mL Sodium 138 (137-145) mmol/L Potassium 3.8 (3.5-5.1) mmol/L Chloride 108 H (98-107) mmol/L Carbon Dioxide 21 L (22-30) mmol/L Anion Gap 12.8 (5-15) MEQ/L BUN 11 (7-17) mg/dL Creatinine 0.89 (0.52-1.04) mg/dL Estimated GFR > 60.0 ML/MIN Glucose 90 (74-106) mg/dL Calcium 9.9 (8.4-10.2) mg/dL Total Bilirubin 0.30 (0.2-1.3) mg/dL AST 17 (14-36) U/L ALT 13 (0-35) U/L Alkaline Phosphatase 52 (38-126) U/L Troponin I < 0.012 (0.000-0.034) ng/mL Serum Total Protein 7.2 (6.3-8.2) g/dL Albumin 4.2 (3.5-5.0) g/dL Urine Opiates Level (NEGATIVE) Ur Methadone (NEGATIVE) Urine Barbiturates (NEGATIVE) Phenytoin (10-20) ug/mL Ur Phencyclidine (PCP) (NEGATIVE) Urine Amphetamine (NEGATIVE) U Benzodiazepine Level (NEGATIVE) Urine Cocaine (NEGATIVE) Urine Marijuana (THC) (NEGATIVE) 11/02/19 Range/Units 11:07 WBC 8.2 (4.0-10.5) K/mm3 RBC 4.06 L (4.1-5.4) M/mm3 Hgb 12.8 (12.0-16.0) gm/dl Hct 38.1 (35-47) % MCV 93.8 (78-100) fl MCH 31.5 (26-32) pg MCHC 33.6 (32-36) g/dl RDW 12.8 (11.5-14.0) % Plt Count 233 (150-450) K/mm3 MPV 10.9 (7.5-11.0) fl Gran % 50.1 (36.0-66.0) % Eos # (Auto) 0.09 (0-0.5) Absolute Lymphs (auto) 3.32 (1.0-4.6) Absolute Monos (auto) 0.66 (0.0-1.3) Lymphocytes % 40.4 (24.0-44.0) % Monocytes % 8.0 (0.0-12.0) % Eosinophils % 1.1 (0.00-5.0) % Basophils % 0.4 (0.0-0.4) % Absolute Granulocytes 4.12 (1.4-6.9) Basophils # 0.03 (0-0.4) D-Dimer (215-500) ng/mL Sodium (137-145) mmol/L Potassium (3.5-5.1) mmol/L Chloride (98-107) mmol/L Carbon Dioxide (22-30) mmol/L Anion Gap (5-15) MEQ/L BUN (7-17) mg/dL Creatinine (0.52-1.04) mg/dL Estimated GFR ML/MIN Glucose (74-106) mg/dL Calcium (8.4-10.2) mg/dL Total Bilirubin (0.2-1.3) mg/dL AST (14-36) U/L ALT (0-35) U/L Alkaline Phosphatase (38-126) U/L Troponin I (0.000-0.034) ng/mL Serum Total Protein (6.3-8.2) g/dL Albumin (3.5-5.0) g/dL Urine Opiates Level (NEGATIVE) Ur Methadone (NEGATIVE) Urine Barbiturates (NEGATIVE) Phenytoin (10-20) ug/mL Ur Phencyclidine (PCP) (NEGATIVE) Urine Amphetamine (NEGATIVE) U Benzodiazepine Level (NEGATIVE) Urine Cocaine (NEGATIVE) Urine Marijuana (THC) (NEGATIVE) - Progress Progress: improved Air Movement: good Progress Note: 11/02/19 13:37 Patient reassessed. She feels well. No chest pain or shortness of breath. Patient is pain-free. Unclear of the etiology of her chest pain at this time. However in light of the intermittent nature of her pain and her history of heavy lifting there is a possibility of chest pain may have been from her chest wall possible muscle spasm. Patient states she is hungry. Patient given a tray to eat. D-dimer negative. Troponin negative x2. Chest x-ray clear. Vitals have been within normal limits. Patient now requesting discharge. Patient advised to wait for second troponin draw. In light of patient's urgency to leave troponin was done slightly earlier than normal. We will discharge patient home Patient agrees to follow-up with her primary care doctor within 48 hours for reevaluation. 11/02/19 13:39 Counseled pt/family regarding: lab results, diagnosis, need for follow-up, rad results, smoking cessation - Departure Departure Disposition: Home Clinical Impression: Chest pain Condition: Stable Critical Care Time: No Referrals: JORGE GODINEZ MD [Primary Care Provider] - Additional Instructions: Discharge/Care Plan DAVIDE MOSQUERA was seen on 11/02/19 in the Emergency Room. The patient was counseled regarding Diagnosis,Lab results, Imaging studies, need for follow up and when to return to the Emergency Room. Prescriptions given: Discharge Note I have spoken with the patient and/or caregivers. I have explained the patient's condition, diagnosis and treatment plan based on the information available to me at this time. I have answered the patient's and/or caregiver's questions and addressed any concerns. The patient and/or caregivers have as good understanding of the patient's diagnosis, condition and treatment plan as can be expected at this point. The vital signs have been stable. The patient's condition is stable and appropriate for discharge from the emergency department. The patient will pursue further outpatient evaluation with the primary care physician or other designated or consulting physician as outlined in the discharge instructions. The patient and/or caregivers are agreeable to this plan of care and follow-up instructions have been explained in detail. The patient and/or caregivers have received these instruction. The patient/and or caregivers are aware that any significant change in condition or worsening of symptoms should prompt an immediate return to this or the closest emergency department or call 911.
[2019-11-02 11:15] LABS: Absolute Neutrophil Ct (ANC) 4.12 (1.4-6.9); BASOPHIL % 0.4 % (0.0-0.4); Basophil (Absolute #) 0.03 (0-0.4); Eosinophil % 1.1 % (0.00-5.0); Eosinophil (Absolute #) 0.09 (0-0.5); Hematocrit 38.1 % (35-47); Hemoglobin 12.8 gm/dl (12.0-16.0); Lymphocyte (Absolute #) 3.32 (1.0-4.6); Lymphocytes % 40.4 % (24.0-44.0); Mean Cell Volume 93.8 fl (78-100); Mean Corpuscular Hemoglobin 31.5 pg (26-32); Mean Corpuscular Hgb Concent. 33.6 g/dl (32-36); Mean Platelet Volume 10.9 fl (7.5-11.0); Monocyte (Absolute #) 0.66 (0.0-1.3); Neutrophil % 50.1 % (36.0-66.0); Platelet Count 233 K/mm3 (150-450); Red Blood Count 4.06 M/mm3 (4.1-5.4); Red Cell Distribution Width 12.8 % (11.5-14.0); White Blood Count 8.2 K/mm3 (4.0-10.5)
--- NOTE | 2019-11-02 11:16 | XRAY ---
Indication: Chest pain. Comparison: August 05, 2019. Portable chest continues to demonstrate normal heart, lungs, bony thorax.
[2019-11-02 11:41] LABS: ALBUMIN 4.2 g/dL (3.5-5.0); ALKALINE PHOSPHATASE 52 U/L (38-126); ANION GAP 12.8 MEQ/L (5-15); BLOOD UREA NITROGEN 11 mg/dL (7-17); CHLORIDE 108 mmol/L (98-107); Calcium 9.9 mg/dL (8.4-10.2); Carbon Dioxide 21 mmol/L (22-30); Creatinine 1 0.89 mg/dL (0.52-1.04); Glucose 90 mg/dL (74-106); Potassium 3.8 mmol/L (3.5-5.1); SGOT/AST 17 U/L (14-36); SGPT/ALT 13 U/L (0-35); SODIUM 138 mmol/L (137-145); Total Protein 7.2 g/dL (6.3-8.2)
[2019-11-02 12:48] LABS: Amphetamine,Urine NEGATIVE (NEGATIVE); Barbiturate,Urine NEGATIVE (NEGATIVE); Benzodiazepine,Urine NEGATIVE (NEGATIVE); Cocaine,Urine NEGATIVE (NEGATIVE); Methadone,Urine NEGATIVE (NEGATIVE); Opiate,Urine NEGATIVE (NEGATIVE); PCP,Urine NEGATIVE (NEGATIVE); THC,Urine NEGATIVE (NEGATIVE)
[2019-11-02 14:31] VITALS: PULSE 66
[2019-11-02 15:04] VITALS: BP 97/71; O2SAT 99
== END 2019-11-02 15:05 | disposition home or self-care (01) ==
LOC: ED 10:45
DX: R07.9 Chest pain, unspecified (principal)
CPT/HCPCS: 36000; 36415; 71045; 80053; 80185; 80307; 84484; 85025; 85379; 93005; 93041; 94760; 99284

== ENCOUNTER 2019-11-07 14:08 | Emergency (ER) | payer MEDICAID ==
[2019-11-07 14:51] LABS: Absolute Neutrophil Ct (ANC) 5.01 (1.4-6.9); BASOPHIL % 0.1 % (0.0-0.4); Basophil (Absolute #) 0.01 (0-0.4); Eosinophil (Absolute #) 0.08 (0-0.5); Hematocrit 40.6 % (35-47); Hemoglobin 13.4 gm/dl (12.0-16.0); Lymphocyte (Absolute #) 2.29 (1.0-4.6); Lymphocytes % 28.7 % (24.0-44.0); Mean Cell Volume 95.5 fl (78-100); Mean Corpuscular Hemoglobin 31.5 pg (26-32); Mean Platelet Volume 10.6 fl (7.5-11.0); Monocyte (Absolute #) 0.59 (0.0-1.3); Monocytes % 7.4 % (0.0-12.0); Neutrophil % 62.8 % (36.0-66.0); Platelet Count 215 K/mm3 (150-450); Red Blood Count 4.25 M/mm3 (4.1-5.4); Red Cell Distribution Width 12.9 % (11.5-14.0)
--- NOTE | 2019-11-07 14:53 | ERPHSYRPT ---
- History of Present Illness Time Seen by Provider: 11/07/19 14:31 Source: patient Exam Limitations: other (Poor historian) Patient Subjective Stated Complaint: dizziness Triage Nursing Assessment: Patient brought back to ED via w/c and transferred to bed with assist of 1. Patient A+O x3. Patient's skin pink, warm and dry. Patient complains of dizziness and headache constant aching pain 5/10 for the past two days. Patient states her left eye is blurry at times. Patient had recent med change with Keppra 250 mg BID while patient is weaning off of dilantin. Patient states she has felt bad since started Keppra on 11/03/19. Pupils PERRL. Patient JEFF well. Physician History: 34 yo F w cc of dizziness x 3 days/generalized lethargy/L frontal BATISTA wo focal weakness/fever/N/V/D/chest pain/dyspnea. Pt has a h/o pseudoseizures and Keppra was added to dilantin which she believes is causing her symptoms. Timing/Duration: other (3days) Severity: mild Character of Deficits: new weakness, general (difuse) Deficits: decrease ability to walk Baseline/Normal Cognition: alert oriented x 3 Current Cognition: alert oriented x 3 Baseline Gait: walks w/o assistance Associated Symptoms: fatigue, weakness, trouble walking, headache, No confusion, No fever, No chills, No loss of consciousness, No nausea, No vomiting, No insomnia, No muscle spasms, No numbness/tingling in legs/feet, No paresthesia, No ringing in ears, No seizures, No slurred speech, No vision changes, No chest pain Allergies/Adverse Reactions: shrimp Allergy (Severe, Verified 11/07/19 14:21) Difficulty Breathing venom-honey bee Allergy (Severe, Verified 11/07/19 14:21) Difficulty Breathing venom-wasp Allergy (Severe, Verified 11/07/19 14:21) Difficulty Breathing menthol [From Icy Hot] Allergy (Intermediate, Verified 11/07/19 14:21) Hives methyl salicylate [From Icy Hot] Allergy (Intermediate, Verified 11/07/19 14:21) Hives nicotine [From Nicoderm CQ] Allergy (Intermediate, Verified 11/07/19 14:21) Rash latex Allergy (Mild, Verified 11/07/19 14:21) Rash Home Medications: Fluoxetine HCl 20 mg [Prozac 20 MG] 40 mg PO DAILY 09/03/18 [History] Phenytoin Sod Extended 100 mg* [Dilantin 100 MG] 200 mg PO BID 07/27/19 [History] levETIRAcetam [Levetiracetam] 1 tab PO HS 11/07/19 [History] Hx Tetanus, Diphtheria Vaccination/Date Given: Yes Hx Influenza Vaccination/Date Given: Yes Hx Pneumococcal Vaccination/Date Given: No Immunizations Up to Date: Yes Travel Risk - International Travel Have you traveled outside of the country in past 3 weeks: No - Coronavirus Screening Close contact with a COVID-19 positive Pt in past 14-21 Days: No - Review of Systems Constitutional: Fatigue, Lethargy, Malaise, Weakness, No Fever, No Chills, No Night Sweats, No Weight Loss, No Other Eyes: No Symptoms Ears, Nose, & Throat: No Symptoms Respiratory: No Symptoms Cardiac: No Symptoms Abdominal/Gastrointestinal: No Symptoms Genitourinary Symptoms: No Symptoms Musculoskeletal: No Symptoms Skin: No Symptoms Neurological: Dizziness, Headache, Lethargy, No Focal Weakness, No Gait Changes Psychological: Anxiety, Depression Endocrine: No Symptoms Hematologic/Lymphatic: No Symptoms Immunological/Allergic: No Symptoms - Past Medical History Pertinent Past Medical History: Yes Neurological History: Migraines, Seizures ENT History: No Pertinent History Cardiac History: No Pertinent History Respiratory History: Asthma Endocrine Medical History: No Pertinent History Musculoskeletal History: No Pertinent History GI Medical History: GERD History: No Pertinent History Psycho-Social History: Anxiety, Depression Female Reproductive Disorders: No Pertinent History - Past Surgical History Past Surgical History: Yes Neuro Surgical History: No Pertinent History Cardiac: No Pertinent History Respiratory: No Pertinent History Gastrointestinal: No Pertinent History Genitourinary: No Pertinent History Musculoskeletal: No Pertinent History Female Surgical History: Dilation & Curettage, Section Other Surgical History: tubal ligation - Social History Smoking Status: Current every day smoker How long have you smoked: 16yrs Exposure to second hand smoke: Yes Drug Use: none Patient Lives Alone: No - Female History Hx Last Menstrual Period: two weeks ago Hx Now: No - Nursing Vital Signs Nursing Vital Signs: Initial Vital Signs Temperature 98.2 F 11/07/19 14:23 Pulse Rate 83 11/07/19 14:23 Respiratory Rate 18 11/07/19 14:23 Blood Pressure 104/66 11/07/19 14:23 O2 Sat by Pulse Oximetry 94 L 11/07/19 14:23 Pain Scale Pain Intensity 97 - Warnock Coma Scale Best Eye Response (Warnock): (4) open spontaneously Best Verbal Response (Selwyn): (5) oriented Best Motor Response (Warnock): (6) obeys commands Warnock Total: 15 - Physical Exam General Appearance: no apparent distress Eye Exam: bilateral eye: normal inspection, PERRL, EOMI Ears, Nose, Throat Exam: normal ENT inspection, TMs normal, pharynx normal Neck Exam: normal inspection, non-tender, supple, full range of motion, No meningismus, No Brudzinski, No Kernig's, No carotid bruit, No JVD Respiratory: normal breath sounds, lungs clear, airway intact, No respiratory distress Cardiovascular: regular rate/rhythm, normal heart sounds, normal peripheral pulses, No murmur Gastrointestinal: soft, normal bowel sounds, No tenderness Back Exam: normal inspection, normal range of motion, No CVA tenderness Extremity Exam: normal inspection, normal range of motion Peripheral Pulses: carotid (R): 2+, carotid (L): 2+ Mental Status: alert, oriented x 3, cooperative, depressed affect restaurant shift supervisor Exam: normal hearing, normal speech, PERRL, No abnormal eye position Coordination/Gait: normal finger to nose Motor/Sensory: no motor deficit, no sensory deficit, no pronator drift, negative Babinski's sign DTR: bicep (R): 2+, bicep (L): 2+, knee (R): 2+, knee (L): 2+ Skin Exam: normal color, warm, dry, No rash SpO2 Interpretation: normal SpO2: 94 O2 Delivery: Room Air - Course Nursing assessment & vital signs reviewed: Yes EKG Interpreted by Me: RATE (NSR/R62/Normal Qt-Qrtc/Normal QRS) - CT Exams Head CT Interpretation: Discussed w/radiologist (Minimal maxillary sinus ds) Ordered Tests: Active Orders 24 hr Category Date Time Status EKG-ER Only STAT Care 11/07/19 15:24 Completed HEAD WITHOUT CONTRAST [CT] Stat Exams 11/07/19 14:38 Completed CBC W DIFF Stat Lab 11/07/19 14:48 Completed CMP Stat Lab 11/07/19 14:48 Completed UA W/RFX UR CULTURE Stat Lab 11/07/19 14:48 Completed Urine Triage Profile Stat Lab 11/07/19 14:48 Completed Medication Summary Discontinued Medications Generic Name Dose Route Start Last Admin Trade Name [place] PRN Reason Stop Dose Admin Meclizine HCl 25 mg 11/07/19 15:43 11/07/19 15:51 Antivert 25 Mg PO 11/07/19 15:44 25 mg STAT ONE Administration Meclizine HCl Confirm 11/07/19 15:48 Antivert 25 Mg Administered 11/07/19 15:49 Dose 25 mg .ROUTE .CheckPoint HR-MED ONE Lab/Rad Data: Laboratory Result Diagrams 11/07/19 14:48 11/07/19 14:48 Laboratory Results 11/07/19 11/07/19 11/07/19 Range/Units 14:48 14:48 14:48 WBC (4.0-10.5) K/mm3 RBC (4.1-5.4) M/mm3 Hgb (12.0-16.0) gm/dl Hct (35-47) % MCV (78-100) fl MCH (26-32) pg MCHC (32-36) g/dl RDW (11.5-14.0) % Plt Count (150-450) K/mm3 MPV (7.5-11.0) fl Gran % (36.0-66.0) % Eos # (Auto) (0-0.5) Absolute Lymphs (auto) (1.0-4.6) Absolute Monos (auto) (0.0-1.3) Lymphocytes % (24.0-44.0) % Monocytes % (0.0-12.0) % Eosinophils % (0.00-5.0) % Basophils % (0.0-0.4) % Absolute Granulocytes (1.4-6.9) Basophils # (0-0.4) Sodium (137-145) mmol/L Potassium (3.5-5.1) mmol/L Chloride (98-107) mmol/L Carbon Dioxide (22-30) mmol/L Anion Gap (5-15) MEQ/L BUN (7-17) mg/dL Creatinine (0.52-1.04) mg/dL Estimated GFR ML/MIN Glucose (74-106) mg/dL Calcium (8.4-10.2) mg/dL Total Bilirubin (0.2-1.3) mg/dL AST (14-36) U/L ALT (0-35) U/L Alkaline Phosphatase (38-126) U/L Serum Total Protein (6.3-8.2) g/dL Albumin (3.5-5.0) g/dL Urine Color YELLOW (YELLOW) Urine Appearance CLOUDY (CLEAR) Urine pH 7.0 (5-6) Ur Specific Lutz 1.020 (1.005-1.025) Urine Protein NEGATIVE (Negative) Urine Ketones NEGATIVE (NEGATIVE) Urine Blood SMALL (0-5) Horacio/ul Urine Nitrite NEGATIVE (NEGATIVE) Urine Bilirubin NEGATIVE (NEGATIVE) Urine Urobilinogen NEGATIVE (0-1) mg/dL Ur Leukocyte Esterase NEGATIVE (NEGATIVE) Urine WBC (Auto) 0-2 (0-5) /HPF Urine RBC (Auto) NONE (0-2) /HPF U Epithel Cells (Auto) MODERATE (FEW) /HPF Urine Bacteria (Auto) NONE (NEGATIVE) /HPF Urine Mucus (Auto) SLIGHT (NEGATIVE) /HPF Urine Culture Reflexed NO (NO) Urine Glucose NEGATIVE (NEGATIVE) mg/dL Urine Opiates Level NEGATIVE (NEGATIVE) Ur Methadone NEGATIVE (NEGATIVE) Urine Barbiturates NEGATIVE (NEGATIVE) Phenytoin 6.6 L (10-20) ug/mL Ur Phencyclidine (PCP) NEGATIVE (NEGATIVE) Urine Amphetamine NEGATIVE (NEGATIVE) U Benzodiazepine Level NEGATIVE (NEGATIVE) Urine Cocaine NEGATIVE (NEGATIVE) Urine Marijuana (THC) NEGATIVE (NEGATIVE) 11/07/19 11/07/19 Range/Units 14:48 14:48 WBC 8.0 (4.0-10.5) K/mm3 RBC 4.25 (4.1-5.4) M/mm3 Hgb 13.4 (12.0-16.0) gm/dl Hct 40.6 (35-47) % MCV 95.5 (78-100) fl MCH 31.5 (26-32) pg MCHC 33.0 (32-36) g/dl RDW 12.9 (11.5-14.0) % Plt Count 215 (150-450) K/mm3 MPV 10.6 (7.5-11.0) fl Gran % 62.8 (36.0-66.0) % Eos # (Auto) 0.08 (0-0.5) Absolute Lymphs (auto) 2.29 (1.0-4.6) Absolute Monos (auto) 0.59 (0.0-1.3) Lymphocytes % 28.7 (24.0-44.0) % Monocytes % 7.4 (0.0-12.0) % Eosinophils % 1.0 (0.00-5.0) % Basophils % 0.1 (0.0-0.4) % Absolute Granulocytes 5.01 (1.4-6.9) Basophils # 0.01 (0-0.4) Sodium 137 (137-145) mmol/L Potassium 3.9 (3.5-5.1) mmol/L Chloride 108 H (98-107) mmol/L Carbon Dioxide 23 (22-30) mmol/L Anion Gap 9.9 (5-15) MEQ/L BUN 14 (7-17) mg/dL Creatinine 0.79 (0.52-1.04) mg/dL Estimated GFR > 60.0 ML/MIN Glucose 118 H (74-106) mg/dL Calcium 9.4 (8.4-10.2) mg/dL Total Bilirubin 0.30 (0.2-1.3) mg/dL AST 18 (14-36) U/L ALT 13 (0-35) U/L Alkaline Phosphatase 54 (38-126) U/L Serum Total Protein 7.1 (6.3-8.2) g/dL Albumin 4.0 (3.5-5.0) g/dL Urine Color (YELLOW) Urine Appearance (CLEAR) Urine pH (5-6) Ur Specific Lutz (1.005-1.025) Urine Protein (Negative) Urine Ketones (NEGATIVE) Urine Blood (0-5) Horacio/ul Urine Nitrite (NEGATIVE) Urine Bilirubin (NEGATIVE) Urine Urobilinogen (0-1) mg/dL Ur Leukocyte Esterase (NEGATIVE) Urine WBC (Auto) (0-5) /HPF Urine RBC (Auto) (0-2) /HPF U Epithel Cells (Auto) (FEW) /HPF Urine Bacteria (Auto) (NEGATIVE) /HPF Urine Mucus (Auto) (NEGATIVE) /HPF Urine Culture Reflexed (NO) Urine Glucose (NEGATIVE) mg/dL Urine Opiates Level (NEGATIVE) Ur Methadone (NEGATIVE) Urine Barbiturates (NEGATIVE) Phenytoin (10-20) ug/mL Ur Phencyclidine (PCP) (NEGATIVE) Urine Amphetamine (NEGATIVE) U Benzodiazepine Level (NEGATIVE) Urine Cocaine (NEGATIVE) Urine Marijuana (THC) (NEGATIVE) - Progress Progress: unchanged Progress Note: 11/07/19 15:44 Pt's symptoms most likely due to meds. Will have pt discontinue Dilantin and follow up with Dr. Godinez in AM. Counseled pt/family regarding: lab results, need for follow-up, rad results - Departure Departure Disposition: Home Clinical Impression: Medication side effect Condition: Stable Critical Care Time: No Referrals: JORGE GODINEZ MD [Primary Care Provider] - Instructions: Dizziness, Nonvertigo, (DC) Additional Instructions: Stop Dilantin Follow up with Dr. Akhtar in AM Return to ER as needed
[2019-11-07 14:57] LABS: Appearance CLOUDY (CLEAR); Bilirubin NEGATIVE (NEGATIVE); Blood SMALL Ery/ul (0-5); Epithelial Cells MODERATE /HPF (FEW); Glucose NEGATIVE (NEGATIVE); Ketones NEGATIVE (NEGATIVE); Leukocyte Esterase NEGATIVE (NEGATIVE); Mucus SLIGHT /HPF (NEGATIVE); Nitrite NEGATIVE (NEGATIVE); Protein,Urine Dip NEGATIVE (Negative); Urobilinogen NEGATIVE mg/dL (0-1); WBC 0-2 /HPF (0-5)
[2019-11-07 15:10] LABS: Amphetamine,Urine NEGATIVE (NEGATIVE); Barbiturate,Urine NEGATIVE (NEGATIVE); Benzodiazepine,Urine NEGATIVE (NEGATIVE); Cocaine,Urine NEGATIVE (NEGATIVE); Methadone,Urine NEGATIVE (NEGATIVE); Opiate,Urine NEGATIVE (NEGATIVE); PCP,Urine NEGATIVE (NEGATIVE); THC,Urine NEGATIVE (NEGATIVE)
[2019-11-07 15:15] LABS: ALKALINE PHOSPHATASE 54 U/L (38-126); ANION GAP 9.9 MEQ/L (5-15); BLOOD UREA NITROGEN 14 mg/dL (7-17); CHLORIDE 108 mmol/L (98-107); Calcium 9.4 mg/dL (8.4-10.2); Carbon Dioxide 23 mmol/L (22-30); Creatinine 1 0.79 mg/dL (0.52-1.04); Glucose 118 mg/dL (74-106); Potassium 3.9 mmol/L (3.5-5.1); SGOT/AST 18 U/L (14-36); SGPT/ALT 13 U/L (0-35); SODIUM 137 mmol/L (137-145); Total Protein 7.1 g/dL (6.3-8.2)
--- NOTE | 2019-11-07 15:27 | XRAY ---
Indication: Headache 2 days. Multiple contiguous axial images obtained through the head without contrast. Comparison: February 19, 2019. Again normal appearing brain parenchyma, ventricles, and bony calvarium. Mild mucosal thickening both maxillary sinuses less than before. Remaining visualized paranasal sinuses and mastoid air cells are clear. Impression: Continued normal CT head without contrast exam again with minimal maxillary sinus disease.
[2019-11-07] MEDS ORDERED: ANTIVERT 25 MG ONE (15:48)
[2019-11-07] MEDS: ANTIVERT 25 MG PO ONE (15:51)
[2019-11-07 16:03] VITALS: BP 97/66; PULSE 55
[2019-11-07 16:45] VITALS: O2SAT 94
== END 2019-11-07 16:06 | disposition home or self-care (01) ==
LOC: ED 14:08
DX: R42 Dizziness and giddiness (principal); R51 Headache; T50.905A Adverse effect of unspecified drugs, medicaments and biological substances, initial encounter; Y92.9 Unspecified place or not applicable
CPT/HCPCS: 36415; 70450; 80053; 80185; 80307; 81001; 85025; 93005; 99284; A9270-GY

== ENCOUNTER 2020-01-10 21:53 | Emergency (ER) | payer SELFPAY ==
--- NOTE | 2020-01-10 22:14 | ERPHSYRPT ---
- History of Present Illness Time Seen by Provider: 01/10/20 21:56 Source: patient Exam Limitations: no limitations Physician History: Patient here with bronchitis. No fever. Some chills. No chest pain. Very mild SOB. Patient continues to smoke. PERC negative. No need for further workup, as <2% chance of PE. Timing/Duration: today Cough Quality/Degree: mild Possible Cause: frequent episodes Modifying Factors: Improves With: activity Associated Symptoms: chills, No fever Allergies/Adverse Reactions: shrimp Allergy (Severe, Verified 01/10/20 21:57) Difficulty Breathing venom-honey bee Allergy (Severe, Verified 01/10/20 21:57) Difficulty Breathing venom-wasp Allergy (Severe, Verified 01/10/20 21:57) Difficulty Breathing menthol [From Icy Hot] Allergy (Intermediate, Verified 01/10/20 21:57) Hives methyl salicylate [From Icy Hot] Allergy (Intermediate, Verified 01/10/20 21:57) Hives nicotine [From Nicoderm CQ] Allergy (Intermediate, Verified 01/10/20 21:57) Rash latex Allergy (Mild, Verified 01/10/20 21:57) Rash Home Medications: Fluoxetine HCl 20 mg [Prozac 20 MG] 40 mg PO DAILY 09/03/18 [History] levETIRAcetam [Levetiracetam] 1 tab PO HS 11/07/19 [History] ARIPiprazole [Aripiprazole] 10 mg PO DAILY 01/02/20 [History] Topiramate 25 mg PO DAILY 01/02/20 [History] Hx Tetanus, Diphtheria Vaccination/Date Given: Yes Hx Influenza Vaccination/Date Given: Yes Hx Pneumococcal Vaccination/Date Given: No - Review of Systems Constitutional: Chills, No Fever Eyes: No Symptoms Ears, Nose, & Throat: No Symptoms Respiratory: Cough, No Dyspnea Cardiac: No Chest Pain, No Edema, No Syncope Abdominal/Gastrointestinal: No Abdominal Pain, No Nausea, No Vomiting, No Diarrhea Genitourinary Symptoms: No Dysuria Musculoskeletal: No Back Pain, No Neck Pain Skin: No Rash Neurological: No Dizziness, No Focal Weakness, No Sensory Changes Psychological: No Symptoms Endocrine: No Symptoms All Other Systems: Reviewed and Negative - Past Medical History Pertinent Past Medical History: Yes Neurological History: Migraines, Seizures ENT History: No Pertinent History Cardiac History: No Pertinent History Respiratory History: Asthma Endocrine Medical History: No Pertinent History Musculoskeletal History: No Pertinent History GI Medical History: GERD History: No Pertinent History Psycho-Social History: Anxiety, Depression Female Reproductive Disorders: No Pertinent History - Past Surgical History Past Surgical History: Yes Neuro Surgical History: No Pertinent History Cardiac: No Pertinent History Respiratory: No Pertinent History Gastrointestinal: No Pertinent History Genitourinary: No Pertinent History Musculoskeletal: No Pertinent History Female Surgical History: Dilation & Curettage, Section Other Surgical History: tubal ligation - Social History Smoking Status: Current every day smoker How long have you smoked: 16yrs Exposure to second hand smoke: Yes Drug Use: none Patient Lives Alone: No - Nursing Vital Signs Nursing Vital Signs: Initial Vital Signs Temperature 98.3 F 01/10/20 22:02 Pulse Rate 94 H 01/10/20 22:02 Respiratory Rate 18 01/10/20 22:02 Blood Pressure 114/83 01/10/20 22:02 O2 Sat by Pulse Oximetry 97 01/10/20 22:02 Pain Scale Pain Intensity 0 - Physical Exam SpO2 Interpretation: normal Comments: 01/10/20 22:13 Physical Exam Vitals signsand nursing notereviewed. Constitutional: Appearance: She is well-developed. HENT: Head: Normocephalicand atraumatic. Eyes: Conjunctiva/sclera: Conjunctivae normal. Neck: Musculoskeletal: Normal range of motion. Trachea: No tracheal deviation. Cardiovascular: Rate and Rhythm: Normal rate. Pulmonary: Effort: Pulmonary effort is normal. Norespiratory distress. Mild wheezes. Abdominal: Palpations: Abdomen is soft. Musculoskeletal: General: No deformity. Skin: General: Skin is warmand dry. Neurological: Mental Status: She is alertand oriented to person, place, and time. Psychiatric: Behavior: Behaviornormal. - Course Nursing assessment & vital signs reviewed: Yes - Progress Progress: improved Air Movement: good Progress Note: 01/10/20 22:13 Most likely viral bronchitis. She has not been taking home medications due to them being "packed away." No respiratory distress. 01/10/20 22:14 Low suspicion for cardiac disease or PE. We will give home meds: steroids, albuterol, prednsione. Plan of care was discussed with patient and all questions answered. The patient is agreeable to be discharged home and both verbal and printed discharge instructions were provided.The patient agreed to seek outpatient follow up as discussed. The patient was given strict instructions to return to the emergency department for worsening symptoms or any other emergent concerns. The patient verbalized understanding. - Departure Departure Disposition: Home Clinical Impression: Bronchitis Condition: Stable Critical Care Time: No Referrals: JORGE GODINEZ MD [Primary Care Provider] - Instructions: Cough, Adult (DC) Prescriptions: Prednisone 10 mg [Deltasone 10 mg] 40 mg PO DAILY 5 Days #100 tablet Benzonatate [Tessalon Perle] 200 mg PO TID #12 capsule Albuterol 8 gm Mdi Hfa [Ventolin Hfa MDI] 8 gm IH Q4H #1 hfa.aer.[email or web address]
[2020-01-10 22:21] VITALS: BP 102/75; PULSE 87; O2SAT 98
== END 2020-01-10 22:23 | disposition home or self-care (01) ==
LOC: ED 21:53
DX: J40 Bronchitis, not specified as acute or chronic (principal)
CPT/HCPCS: 99283

== ENCOUNTER 2020-08-15 20:03 | Emergency (ER) | payer OTHER ==
--- NOTE | 2020-08-15 20:09 | ERPHSYRPT ---
- History of Present Illness Time Seen by Provider: 08/15/20 20:09 Source: patient, EMS Physician History: This is a 35-year-old female who has a history of migraines, seizure disorder, anxiety and depression on a few medications. Recently, approximately 2 months ago, patient was placed on Topamax. Patient presents today with 2-month history of numbness of her hands and feet. She felt that her symptoms were worse today and therefore she came into be evaluated. Patient denies any injury to her extremities. She has had no fever chills. She has no chest pain she is not short of breath, she has no abdominal pain. She has had no nausea vomiting or diarrhea. Timing/Duration: other (2 Months) Severity: mild Modifying Factors: Improves With: nothing Associated Symptoms: denies symptoms Allergies/Adverse Reactions: shrimp Allergy (Severe, Verified 08/15/20 20:22) Difficulty Breathing venom-honey bee Allergy (Severe, Verified 08/15/20 20:22) Difficulty Breathing venom-wasp Allergy (Severe, Verified 08/15/20 20:22) Difficulty Breathing menthol [From Icy Hot] Allergy (Intermediate, Verified 08/15/20 20:22) Hives methyl salicylate [From Icy Hot] Allergy (Intermediate, Verified 08/15/20 20:22) Hives nicotine [From Nicoderm CQ] Allergy (Intermediate, Verified 08/15/20 20:22) Rash latex Allergy (Mild, Verified 08/15/20 20:22) Rash Home Medications: Fluoxetine HCl 20 mg [Prozac 20 MG] 40 mg PO DAILY 09/03/18 [History] levETIRAcetam [Levetiracetam] 500 mg PO BID 11/07/19 [History] ARIPiprazole [Aripiprazole] 10 mg PO DAILY 01/02/20 [History] Topiramate mg PO DAILY 01/02/20 [History] Hx Tetanus, Diphtheria Vaccination/Date Given: Yes Hx Influenza Vaccination/Date Given: Yes Hx Pneumococcal Vaccination/Date Given: No Travel Risk - International Travel Have you traveled outside of the country in past 3 weeks: No - Coronavirus Screening Are you exhibiting any of the following symptoms?: No Close contact with a COVID-19 positive Pt in past 14-21 Days: No - Review of Systems Constitutional: No Symptoms Eyes: No Symptoms Ears, Nose, & Throat: No Symptoms Respiratory: No Symptoms Cardiac: No Symptoms Abdominal/Gastrointestinal: No Symptoms Genitourinary Symptoms: No Symptoms Musculoskeletal: No Symptoms Skin: No Symptoms Neurological: Parasthesia (Bilateral feet and hands) Psychological: No Symptoms, No Suicidal Ideations, No Hallucinations Endocrine: No Symptoms Hematologic/Lymphatic: No Symptoms Immunological/Allergic: No Symptoms All Other Systems: Reviewed and Negative - Past Medical History Pertinent Past Medical History: Yes Neurological History: Migraines, Seizures ENT History: No Pertinent History Cardiac History: No Pertinent History Respiratory History: Asthma Endocrine Medical History: No Pertinent History Musculoskeletal History: No Pertinent History GI Medical History: GERD History: No Pertinent History Psycho-Social History: Anxiety, Depression Female Reproductive Disorders: No Pertinent History - Past Surgical History Past Surgical History: Yes Neuro Surgical History: No Pertinent History Cardiac: No Pertinent History Respiratory: No Pertinent History Gastrointestinal: No Pertinent History Genitourinary: No Pertinent History Musculoskeletal: No Pertinent History Female Surgical History: Dilation & Curettage, Section Other Surgical History: tubal ligation - Social History Smoking Status: Current every day smoker How long have you smoked: 16yrs Exposure to second hand smoke: Yes Drug Use: none Patient Lives Alone: No - Nursing Vital Signs Nursing Vital Signs: Initial Vital Signs Pulse Rate 89 08/15/20 20:06 Respiratory Rate 16 08/15/20 20:06 Blood Pressure 118/75 08/15/20 20:06 O2 Sat by Pulse Oximetry 100 08/15/20 20:06 Pain Scale Pain Intensity 0 - Physical Exam General Appearance: no apparent distress, alert, anxiety Eye Exam: PERRL/EOMI, eyes nml inspection Ears, Nose, Throat Exam: normal ENT inspection, moist mucous membranes Neck Exam: normal inspection, non-tender, supple, full range of motion Respiratory Exam: normal breath sounds, lungs clear, airway intact, No chest tenderness, No respiratory distress Cardiovascular Exam: regular rate/rhythm, normal heart sounds, normal peripheral pulses Gastrointestinal/Abdomen Exam: soft, normal bowel sounds, No tenderness Pelvic Exam: not done Rectal Exam: not done Back Exam: normal inspection, normal range of motion, No CVA tenderness, No vertebral tenderness Extremity Exam: normal inspection, normal range of motion, pelvis stable, other (Complains of numbness in bilateral feet and hands. No loss of sensation) Neurologic Exam: alert, oriented x 3, cooperative, authorization manager II-XII nml as tested, normal mood/affect, nml cerebellar function, nml station & gait, sensation nml Skin Exam: normal color, warm, dry Lymphatic Exam: No adenopathy SpO2 Interpretation: normal - Course Nursing assessment & vital signs reviewed: Yes Ordered Tests: Active Orders 24 hr Category Date Time Status CBC W DIFF Stat Lab 08/15/20 20:47 Completed CMP Stat Lab 08/15/20 20:47 Completed MAGNESIUM Stat Lab 08/15/20 20:47 Completed UA W/RFX UR CULTURE Stat Lab 08/15/20 20:30 Completed Lab/Rad Data: Laboratory Result Diagrams 08/15/20 20:47 08/15/20 20:47 Laboratory Results 08/15/20 08/15/20 08/15/20 Range/Units 20:47 20:47 20:30 WBC 8.9 (4.0-10.5) K/mm3 RBC 4.17 (4.1-5.4) M/mm3 Hgb 12.6 (12.0-16.0) gm/dl Hct 39.2 (35-47) % MCV 94.0 (78-100) fl MCH 30.2 (26-32) pg MCHC 32.1 (32-36) g/dl RDW 13.7 (11.5-14.0) % Plt Count 239 (150-450) K/mm3 MPV 10.2 (7.5-11.0) fl Gran % 60.6 (36.0-66.0) % Eos # (Auto) 0.20 (0-0.5) Absolute Lymphs (auto) 2.61 (1.0-4.6) Absolute Monos (auto) 0.66 (0.0-1.3) Lymphocytes % 29.5 (24.0-44.0) % Monocytes % 7.4 (0.0-12.0) % Eosinophils % 2.3 (0.00-5.0) % Basophils % 0.2 (0.0-0.4) % Absolute Granulocytes 5.37 (1.4-6.9) Basophils # 0.02 (0-0.4) Sodium 139 (137-145) mmol/L Potassium 3.9 (3.5-5.1) mmol/L Chloride 110 H (98-107) mmol/L Carbon Dioxide 20 L (22-30) mmol/L Anion Gap 12.9 (5-15) MEQ/L BUN 16 (7-17) mg/dL Creatinine 0.85 (0.52-1.04) mg/dL Estimated GFR > 60.0 ML/MIN Glucose 106 (74-106) mg/dL Calcium 9.1 (8.4-10.2) mg/dL Magnesium 2.1 (1.6-2.3) mg/dL Total Bilirubin 0.20 (0.2-1.3) mg/dL AST 22 (14-36) U/L ALT 23 (0-35) U/L Alkaline Phosphatase 53 (38-126) U/L Serum Total Protein 7.3 (6.3-8.2) g/dL Albumin 4.1 (3.5-5.0) g/dL Urine Color COLORLESS (YELLOW) Urine Appearance CLEAR (CLEAR) Urine pH 6.0 (5-6) Ur Specific [place] 1.003 (1.005-1.025) Urine Protein NEGATIVE (Negative) Urine Ketones NEGATIVE (NEGATIVE) Urine Blood SMALL (0-5) Horacio/ul Urine Nitrite NEGATIVE (NEGATIVE) Urine Bilirubin NEGATIVE (NEGATIVE) Urine Urobilinogen NEGATIVE (0-1) mg/dL Ur Leukocyte Esterase NEGATIVE (NEGATIVE) Urine WBC (Auto) NONE (0-5) /HPF Urine RBC (Auto) NONE (0-2) /HPF U Epithel Cells (Auto) NONE (FEW) /HPF Urine Bacteria (Auto) NONE (NEGATIVE) /HPF Urine Culture Reflexed NO (NO) Urine Glucose NEGATIVE (NEGATIVE) mg/dL - Progress Progress: unchanged Counseled pt/family regarding: lab results, diagnosis, need for follow-up - Departure Clinical Impression: Numbness and tingling in both hands, Numbness and tingling of both feet, Medication reaction Condition: Stable Critical Care Time: No Referrals: JORGE GODINEZ MD [Primary Care Provider] - Additional Instructions: Contact your prescribing physician tomorrow morning and ask them to review your medications. Ask him if your Topamax might be contributing to your symptoms. Hold your Topamax until you speak with your prescribing physician.
[2020-08-15 20:22] VITALS: O2SAT 100
[2020-08-15 20:47] LABS: Absolute Neutrophil Ct (ANC) 5.37 (1.4-6.9); BASOPHIL % 0.2 % (0.0-0.4); Basophil (Absolute #) 0.02 (0-0.4); Eosinophil % 2.3 % (0.00-5.0); Hematocrit 39.2 % (35-47); Hemoglobin 12.6 gm/dl (12.0-16.0); Lymphocyte (Absolute #) 2.61 (1.0-4.6); Lymphocytes % 29.5 % (24.0-44.0); Mean Corpuscular Hemoglobin 30.2 pg (26-32); Mean Corpuscular Hgb Concent. 32.1 g/dl (32-36); Mean Platelet Volume 10.2 fl (7.5-11.0); Monocyte (Absolute #) 0.66 (0.0-1.3); Monocytes % 7.4 % (0.0-12.0); Neutrophil % 60.6 % (36.0-66.0); Platelet Count 239 K/mm3 (150-450); Red Blood Count 4.17 M/mm3 (4.1-5.4); Red Cell Distribution Width 13.7 % (11.5-14.0); White Blood Count 8.9 K/mm3 (4.0-10.5)
[2020-08-15 20:51] LABS: Appearance CLEAR (CLEAR); Bilirubin NEGATIVE (NEGATIVE); Blood SMALL Ery/ul (0-5); Glucose NEGATIVE (NEGATIVE); Ketones NEGATIVE (NEGATIVE); Leukocyte Esterase NEGATIVE (NEGATIVE); Nitrite NEGATIVE (NEGATIVE); Protein,Urine Dip NEGATIVE (Negative); Specific Gravity 1.003 (1.005-1.025); Urobilinogen NEGATIVE mg/dL (0-1)
[2020-08-15 21:01] LABS: ALBUMIN 4.1 g/dL (3.5-5.0); ALKALINE PHOSPHATASE 53 U/L (38-126); ANION GAP 12.9 MEQ/L (5-15); BLOOD UREA NITROGEN 16 mg/dL (7-17); CHLORIDE 110 mmol/L (98-107); Calcium 9.1 mg/dL (8.4-10.2); Carbon Dioxide 20 mmol/L (22-30); Creatinine 1 0.85 mg/dL (0.52-1.04); EST GLOMERULAR FILTRATION RATE > 60.0 ML/MIN; Glucose 106 mg/dL (74-106); MAGNESIUM 2.1 mg/dL (1.6-2.3); Potassium 3.9 mmol/L (3.5-5.1); SGOT/AST 22 U/L (14-36); SGPT/ALT 23 U/L (0-35); SODIUM 139 mmol/L (137-145); Total Protein 7.3 g/dL (6.3-8.2)
[2020-08-15 21:25] VITALS: BP 112/64; PULSE 83
== END 2020-08-15 21:38 | disposition home or self-care (01) ==
LOC: ED 20:03
DX: R20.0 Anesthesia of skin (principal); R20.2 Paresthesia of skin
CPT/HCPCS: 36415; 80053; 81001; 83735; 85025; 99283

== ENCOUNTER 2021-05-10 16:20 | Emergency (ER) | payer OTHER ==
[2021-05-10 16:33] VITALS: BP 96/58; PULSE 65; O2SAT 98
[2021-05-10] MEDS ORDERED: ZOFRAN ODT 4 MG PO ONE (17:14)
[2021-05-10] MEDS ORDERED: MORPHINE SULFATE 2 MG INJ IV ONE (17:14)
[2021-05-10] MEDS ORDERED: ZOFRAN ODT 4 MG ONE (17:26)
[2021-05-10] MEDS ORDERED: MORPHINE SULFATE 2 MG INJ ONE (17:27)
--- NOTE | 2021-05-10 17:32 | ERPHSYRPT ---
- History of Present Illness Time Seen by Provider: 05/10/21 16:30 Source: patient Exam Limitations: no limitations Patient Subjective Stated Complaint: Pt fell on the ice yesterday and hit her head and went to [facility] and they xrayed her lower hips and her back but not her head, pt c/o of headache and dizziness and nausea Triage Nursing Assessment: Pt was brought to the ER by EMS, hypotensive, rates pain as 01/12, this nurse was told by EMS that pt was on cell phone yesterday and was not acting as if she was in pain and so the doctor did not take it seriously at [facility], pt denies LOC, denies vomiting, doesn't appear to be in any distress Physician History: This is a 35-year-old obese white female who fell yesterday on the ice and hit her head. She was seen at [facility] yesterday and there is no indication or record that she had a CAT scan of the head performed. She had other parts of her body x-rayed and there are no evidence of any acute fracture or dislocations. In the last 24 hours she has felt sleepy groggy and has been nauseated and even vomited. She has had no visual changes. Patient has a history of migraine headaches, seizure disorder, anxiety issues and depression. Occurred: yesterday Reason for Fall: slipped (On ice) Injuries/Pain Location: head Loss of Consciousness: no loss of consciousness Quality: aching Severity of Pain-Max: moderate Severity of Pain-Current: mild (To moderate) Associated Symptoms (Fall): headache, nausea, vomiting, No vision changes Allergies/Adverse Reactions: shrimp Allergy (Severe, Verified 05/10/21 16:33) Difficulty Breathing venom-honey bee Allergy (Severe, Verified 05/10/21 16:33) Difficulty Breathing venom-wasp Allergy (Severe, Verified 05/10/21 16:33) Difficulty Breathing menthol [From Icy Hot] Allergy (Intermediate, Verified 05/10/21 16:33) Hives methyl salicylate [From Icy Hot] Allergy (Intermediate, Verified 05/10/21 16:33) Hives nicotine [From Nicoderm CQ] Allergy (Intermediate, Verified 05/10/21 16:33) Rash latex Allergy (Mild, Verified 05/10/21 16:33) Rash Home Medications: Fluoxetine HCl 20 mg [Prozac 20 MG] 60 mg PO DAILY 09/03/18 [History] levETIRAcetam [Levetiracetam] 500 mg PO BID 11/07/19 [History] Topiramate 25 mg PO DAILY 01/02/20 [History] Hx Tetanus, Diphtheria Vaccination/Date Given: Yes Hx Influenza Vaccination/Date Given: Yes Hx Pneumococcal Vaccination/Date Given: No Travel Risk - International Travel Have you traveled outside of the country in past 3 weeks: No - Coronavirus Screening Are you exhibiting any of the following symptoms?: No - Vaccine Status Have you recieved a Covid-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: [employer] - Vaccination Dates Date of 2cond Vaccination (if applicable): [id number] - Review of Systems Constitutional: No Symptoms Eyes: No Symptoms Ears, Nose, & Throat: No Symptoms Respiratory: No Symptoms Cardiac: No Symptoms Abdominal/Gastrointestinal: Nausea, Vomiting, No Diarrhea Genitourinary Symptoms: No Symptoms Musculoskeletal: No Symptoms Skin: No Symptoms Neurological: Headache Psychological: No Symptoms Endocrine: No Symptoms Hematologic/Lymphatic: No Symptoms Immunological/Allergic: No Symptoms All Other Systems: Reviewed and Negative - Past Medical History Pertinent Past Medical History: Yes Neurological History: Migraines, Seizures ENT History: No Pertinent History Cardiac History: No Pertinent History Respiratory History: Asthma Endocrine Medical History: No Pertinent History Musculoskeletal History: No Pertinent History GI Medical History: GERD History: No Pertinent History Psycho-Social History: Anxiety, Depression Female Reproductive Disorders: No Pertinent History - Past Surgical History Past Surgical History: Yes Neuro Surgical History: No Pertinent History Cardiac: No Pertinent History Respiratory: No Pertinent History Gastrointestinal: No Pertinent History Genitourinary: No Pertinent History Musculoskeletal: No Pertinent History Female Surgical History: Dilation & Curettage, Section Other Surgical History: tubal ligation - Social History Smoking Status: Current every day smoker How long have you smoked: 16yrs Exposure to second hand smoke: Yes Drug Use: none Patient Lives Alone: No - Female History Hx Last Menstrual Period: 04/17/2021 Hx Now: No - Nursing Vital Signs Nursing Vital Signs: Initial Vital Signs Temperature 98.3 F 05/10/21 16:21 Pulse Rate 65 05/10/21 16:21 Blood Pressure 96/58 05/10/21 16:21 O2 Sat by Pulse Oximetry 98 05/10/21 16:21 Pain Scale Pain Intensity 10 - [place] Coma Score Best Eye Response ([place]): (4) open spontaneously Best Verbal Response ([place]): (5) oriented Best Motor Response ([place]): (6) obeys commands [place] Total: 15 - Physical Exam General Appearance: no apparent distress, alert, anxiety, obese Head Injury: no evidence of injury Eye Exam: PERRL/EOMI, eyes nml inspection ENT Exam: airway nml, nml ext.inspection Neck Exam: supple, trachea midline, full range of motion, normal alignment, normal inspection Respiratory/Chest Exam: normal breath sounds, No chest tenderness, No respiratory distress, No ecchymosis, No crepitus Cardiovascular Exam: normal heart sounds, regular rate/rhythm Gastrointestinal Exam: No tenderness Rectal Exam: not done Back Exam: normal inspection, normal range of motion, No CVA tenderness, No vertebral tenderness Extremity Exam: normal inspection, normal range of motion, capillary refill <3 sec, pelvis stable Neurologic Exam: alert, oriented x 3, cooperative, professor of mathematics II-XII nml as tested, normal mood/affect, nml cerebellar function, nml station & gait, sensation nml Skin Exam: normal color, warm, dry SpO2 Interpretation: normal SpO2: 98 O2 Delivery: Room Air - Course Nursing assessment & vital signs reviewed: Yes Ordered Tests: Active Orders 24 hr Category Date Time Status HEAD WITHOUT CONTRAST [CT] Stat Exams 05/10/21 16:39 Taken Medication Summary Discontinued Medications Generic Name Dose Route Start Last Admin Trade Name [place] PRN Reason Stop Dose Admin Morphine Sulfate 2 mg 05/10/21 17:14 05/10/21 17:27 Morphine Sulfate 2 Mg/Ml Inj IV 05/10/21 17:15 2 mg STAT ONE Administration Morphine Sulfate Confirm 05/10/21 17:27 Morphine Sulfate 2 Mg/Ml Inj Administered 05/10/21 17:28 Dose 2 mg .ROUTE .STK-MED ONE Ondansetron HCl 4 mg 05/10/21 17:14 05/10/21 17:28 Zofran 4 Mg/Udtablet Orally Disintegrating PO 05/10/21 17:15 4 mg STAT ONE Administration Ondansetron HCl Confirm 05/10/21 17:26 Zofran 4 Mg/Udtablet Orally Disintegrating Administered 05/10/21 17:27 Dose 4 mg .ROUTE .STK-MED ONE - Progress Progress: improved Counseled pt/family regarding: diagnosis, need for follow-up, rad results - Departure Departure Disposition: Home Clinical Impression: Fall Condition: Stable Critical Care Time: No Referrals: JORGE GODINEZ MD [Primary Care Provider] - Follow up/PCP as directed Additional Instructions: May use Tylenol and ibuprofen, if not allergic, for pain control. Follow-up with your primary care provider as an outpatient if symptoms persist. Return to the emergency department if symptoms worsen Prescriptions: Ondansetron ODT 4 MG [Zofran Odt 4 mg] 4 mg PO Q6H PRN PRN #10 tablet PRN Reason: Vomiting
--- NOTE | 2021-05-10 19:05 | XRAY ---
Indication: Headache and nausea following fall with posterior head injury. Multiple contiguous axial images obtained through the head without contrast. Comparison: November 07, 2019. Normal appearing brain parenchyma, ventricles, and bony calvarium. Visualized paranasal sinuses and mastoid air cells are clear. Impression: Continued normal CT head without contrast exam. Comment: Preliminary interpretation made by [facility]. No critical discrepancy.
== END 2021-05-10 18:18 | disposition home or self-care (01) ==
LOC: ED 16:20
DX: R51.9 Headache, unspecified (principal); R11.2 Nausea with vomiting, unspecified; R40.0 Somnolence; W00.0XXA Fall on same level due to ice and snow, initial encounter; Z79.899 Other long term (current) drug therapy; Z72.0 Tobacco use
CPT/HCPCS: 70450; 99284; J2270; Q0162